=== PATIENT | male | born 1935 | race Caucasian/White ===

== ENCOUNTER 2018-09-21 13:43 | Inpatient (IN) ==
[2018-09-21] MEDS ORDERED: MORPHINE IV PRN (13:59)
[2018-09-21] MEDS ORDERED: ZOFRAN IV PRN (13:59)
[2018-09-21] MEDS ORDERED: SALINE LOCK IV FLUID XX ONE (13:59)
[2018-09-21 17:32] LABS: URINE SOURCE CATH
[2018-09-21 17:38] LABS: BILIRUBIN URINE NEGATIVE (NEGATIVE); BLOOD URINE MODERATE (NEGATIVE); COLOR YELLOW; GLUCOSE URINE NEGATIVE (NEGATIVE); KETONE URINE NEGATIVE (NEGATIVE); LEUKOCYTES URINE TRACE (NEGATIVE); NITRITE URINE NEGATIVE (NEGATIVE); PH URINE 5.5; PROTEIN URINE 30 mg/dL (NEGATIVE); SP GRAVITY URINE 1.023; TURBIDITY URINE CLEAR (CLEAR); UR EPITHELIAL CELLS <10 /HPF (<10); URINE BACTERIA NEGATIVE /HPF; URINE RBC TNTC /HPF (<10); URINE WBC <10 /HPF (<10); UROBILINOGEN URINE NORMAL (NORMAL)
[2018-09-21] MEDS: RESTORIL PO SCH (22:49)
[2018-09-21] MEDS: PRAVACHOL PO SCH (22:49)
[2018-09-21] MEDS: SEROQUEL PO SCH (22:49)
[2018-09-21] MEDS: MIRAPEX PO SCH (22:50)
[2018-09-21] MEDS: MICARDIS PO SCH (22:50)
[2018-09-21] MEDS: COREG PO SCH (22:51)
[2018-09-22] MEDS ORDERED: NS 500 ML IV ONE (08:46)
[2018-09-22] MEDS ORDERED: SOLU-MEDROL IV ONE (08:46)
[2018-09-22] MEDS ORDERED: FLOMAX PO ONE (08:49)
[2018-09-22] MEDS ORDERED: IVIG DOSING ORDER MISC SCH (09:00)
[2018-09-22] MEDS: PRILOSEC PO SCH (09:30)
[2018-09-22] MEDS: COREG PO SCH ×2 (09:30→20:53)
--- NOTE | 2018-09-22 10:01 | PROGRESS NOTE ---
DATE: 09/22/2018 SUBJECTIVE: The patient states that he is feeling a little bit better today. His lower abdominal pain has dissipated significantly with placement of a Tinoco, even though he did not have a huge output of urine as a result of that placement. Total output overnight was 650 mL. There was gross blood in it initially. OBJECTIVE: Vital Signs: 98.2, 73, 16, 133/72, 100% saturated on room air. General: The patient is sitting in bed eating. His tremor is improved, particularly in the right arm and the tremor that is visible is consistent with a parkinsonian tremor. He also has tremor in left arm, but it is not as prominent. ENT: Unremarkable. Lungs: Clear. Cardiovascular: Regular. Genitourinary: Tinoco bag has some dark-colored urine in it but is otherwise without sediment. LABORATORY DATA: Yesterday the patient had laboratory drawn at the [facility] outpatient and the only significant finding was atrial fibrillation, rate of 51. Kidney function, liver functions, electrolytes, white cell count and red cell count were appropriate and normal for him. Initial urinalysis done at the hospital after catheterization showed ttx-[id number]-count red cells in the urine. ASSESSMENT AND PLAN: 1. We will monitor the patient for signs of infection. He is not on any empiric antibiotics. 2. I still consider that the patient was in some form of urinary retention which may or may not be intertwined with his hematuria. I have started him on some Flomax and we will keep the Tinoco catheter in for now. I do not see a reason for urgent urologic consultation at the present time. 3. The patient's sedimentation rate could be indicative of an infectious process or given the fact that he had such diffuse and severe joint pain that he had PMR. I am going to treat him with steroids and also re-dose his IVIG which he had taken in February for his demyelinating polyneuropathy. I have asked the pharmacy to calculate the dose for him. I am hopeful that he will have a marked recovery by tomorrow with the induction of steroids and IVIG and will be able to be sent home for outpatient follow-up at that point. 4. Patient's Parkinson's is stable. He is on his home medication regimen. cc: Vladislav Corral MD
[2018-09-22] MEDS: GAMUNEX-C 10% IV SCH (12:08)
[2018-09-22] MEDS: PATIENT'S OWN MED PO SCH (17:40)
[2018-09-22] MEDS: SEROQUEL PO SCH (20:52)
[2018-09-22] MEDS: FLOMAX PO SCH (20:52)
[2018-09-22] MEDS: MIRAPEX PO SCH (20:53)
[2018-09-22] MEDS: PRAVACHOL PO SCH (20:53)
[2018-09-22] MEDS: RESTORIL PO SCH (20:54)
[2018-09-22] MEDS: MICARDIS PO SCH (20:54)
[2018-09-23 07:27] LABS: BASO# 0.01 X1000 (0.0-0.2); BASO% 0.1 % (0.0-0.8); EOS# 0.02 X1000 (0.0-0.7); EOS% 0.3 % (0.0-10.0); HEMATOCRIT 41.4 % (42.0-52.0); HEMOGLOBIN 13.8 g/dL (14.0-18.0); LYMPH# 0.69 X1000 (1.2-3.4); LYMPH% 8.8 % (20.5-51.1); MCH 31.1 PG (27-31); MCHC 33.3 g/dL (33-37); MCV 93.2 FL (81-99); MONO# 0.42 X1000 (0.11-0.59); MONO% 5.4 % (1.7-9.3); MPV 10.5 FL (7.4-10.4); NEUT# 6.66 X1000 (1.4-6.5); NEUT% 85.4 % (42.2-75.2); PLT 220 X1000 (130-400); RBC 4.44 XMIL (4.7-6.1); RDW 13.4 % (11.5-14.5)
[2018-09-23 07:34] LABS: AGAP 12; BUN 23 mg/dL (8-22); CALCIUM 9.4 mg/dL (8.8-10.2); CHLORIDE 104 mmol/L (98-107); COSMO 283; ESTIMATED GFR > 60; GLUCOSE 132 mg/dL (70-104); POTASSIUM 3.8 mmol/L (3.5-5.1); SODIUM 139 mmol/L (136-145); TCO2 23 mmol/L (25-35)
[2018-09-23] MEDS: PRILOSEC PO SCH (09:07)
[2018-09-23] MEDS: COREG PO SCH ×2 (09:07→20:38)
[2018-09-23] MEDS: PATIENT'S OWN MED PO SCH (09:07)
[2018-09-23] MEDS: GAMUNEX-C 10% IV SCH (10:47)
--- NOTE | 2018-09-23 16:25 | PROGRESS NOTE ---
DATE: 09/23/2018 SUBJECTIVE: The patient had a very rough night and was very agitated. This morning he has completely lost his faculties and is not lucid. He is no coherent. He is not oriented, despite being alert. I spoke at length with his daughter whom I have never met before. OBJECTIVE: Vital Signs: Temperature 98.2, pulse 86, respirations 16, blood pressure 133/79. General: He is a well developed white male in no acute distress. He is rambling on. His thoughts are not very coherent. He does not seem to be oriented to time, place, or person. Lungs: Clear. Cardiovascular: Regular. Extremities: Showed no peripheral edema. Genitourinary: Tinoco catheter is draining some darkish looking urine. ASSESSMENT AND PLAN: 1. The patient's acute mental status change could be precipitated by any number of things. When I spoke further with the daughter, she indicated that the patient had not been getting medication as prescribed. The patient's frequently holds out various and sundry pills according to her own whims and it is rare, if ever, that the patient gets all of the medication that he is prescribed. Having been naive to that medication for some time, the fact that all of this was dumped on him at once with the assumption that this represented his home medication regimen, was a false premise. We are going to hold several of the medications and see if his sensorium clears. 2. The patient's urinary retention has been treated with Tinoco catheter and some Flomax. We will continue to monitor this situation and likely discontinue Tinoco catheter. 3. The patient has had an elevated sedimentation rate and known chronic inflammatory demyelinating polyneuropathy. He was given steroids and does not seem to have as much joint pain today. He gets his second dose of intravenous immunoglobulin as well. These two infusions were given to follow the recommendations of Dr. Gagnon, as evidenced by his communication note from a previous neurological office visit. 4. The patient's Parkinson's is stable. He still has a tremor. 5. The patient's overall weakness has not really improved but we plan on getting him up if his mental status improves significantly. cc: Vladislav Corral MD
[2018-09-23] MEDS: PRAVACHOL PO SCH (20:37)
[2018-09-23] MEDS: FLOMAX PO SCH (20:38)
[2018-09-23] MEDS: TYLENOL PO PRN (20:38)
[2018-09-23] MEDS: MIRAPEX PO SCH (20:38)
[2018-09-23] MEDS: MICARDIS PO SCH (20:38)
[2018-09-24] MEDS ORDERED: PREDNISONE PO SCH (09:00)
[2018-09-24] MEDS: COREG PO SCH ×2 (09:02→22:30)
[2018-09-24] MEDS: PRILOSEC PO SCH (09:02)
[2018-09-24] MEDS: PATIENT'S OWN MED PO SCH (09:03)
[2018-09-24] MEDS: TYLENOL PO PRN (12:24)
[2018-09-24] MEDS: MIRAPEX PO SCH (22:30)
[2018-09-24] MEDS: FLOMAX PO SCH (22:30)
[2018-09-24] MEDS: MICARDIS PO SCH (22:30)
[2018-09-24] MEDS: PRAVACHOL PO SCH (22:30)
[2018-09-25] MEDS: TYLENOL PO PRN (01:46)
[2018-09-25 06:45] LABS: BASO# 0.01 X1000 (0.0-0.2); BASO% 0.1 % (0.0-0.8); EOS# 0.02 X1000 (0.0-0.7); EOS% 0.2 % (0.0-10.0); HEMATOCRIT 37.3 % (42.0-52.0); HEMOGLOBIN 12.5 g/dL (14.0-18.0); IMM GRAN# 0.02 X1000 (0.0-0.04); IMM GRAN% 0.2 % (0.0-0.5); LYMPH# 1.65 X1000 (1.2-3.4); LYMPH% 17.3 % (20.5-51.1); MCH 30.9 PG (27-31); MCHC 33.5 g/dL (33-37); MCV 92.1 FL (81-99); MONO# 0.95 X1000 (0.11-0.59); MPV 10.2 FL (7.4-10.4); NEUT# 6.89 X1000 (1.4-6.5); NEUT% 72.2 % (42.2-75.2); PLT 233 X1000 (130-400); RBC 4.05 XMIL (4.7-6.1); RDW 13.3 % (11.5-14.5); WBC 9.54 X1000 (4.8-10.8)
[2018-09-25 07:08] LABS: AGAP 11; ALB/GLOB RATIO 0.6; ALBUMIN 3.2 g/dL (3.5-5.0); ALKALINE PHOSPHATASE 54 U/L (32-122); BUN 25 mg/dL (8-22); CALCIUM 9.3 mg/dL (8.8-10.2); CHLORIDE 100 mmol/L (98-107); COSMO 278; ESTIMATED GFR > 60; GLUCOSE 123 mg/dL (70-104); GOT 21 U/L (10-34); GPT 9 U/L (10-44); POTASSIUM 3.7 mmol/L (3.5-5.1); SODIUM 136 mmol/L (136-145); TCO2 25 mmol/L (25-35); TOTAL BILIRUBIN 0.65 mg/dL (0.20-1.00); TOTAL PROTEIN 8.6 g/dL (6.3-8.3)
[2018-09-25] MEDS: PREDNISONE PO SCH (09:09)
[2018-09-25] MEDS: PRILOSEC PO SCH (09:09)
[2018-09-25] MEDS: PATIENT'S OWN MED PO SCH (09:10)
[2018-09-25] MEDS: COREG PO SCH ×2 (09:13→22:11)
--- NOTE | 2018-09-25 09:14 | Diag Imaging Result Doc PS360 ---
EXAM: CT HEAD W/O CONTRAST INDICATION: mental status change TECHNIQUE: This exam was performed using automated exposure control, adjustment of mA or kV according to patient size, and/or use of iterative reconstruction technique. COMPARISON: None. FINDINGS: There is moderate diffuse brain atrophy. There is mild patchy low attenuation in the periventricular and subcortical white matter suggesting mild microangiopathy. There is no definite acute infarct given the limited sensitivity of CT versus MRI. There is no discrete intracranial mass, mass effect, or intracranial hemorrhage. The surrounding soft tissues and bony structures are essentially unremarkable. IMPRESSION: Chronic appearing changes as described. No evidence of acute intracranial pathology. Electronically signed by Duglas Dunn 09/25/2018 9:12 AM
--- NOTE | 2018-09-25 09:29 | PROGRESS NOTE ---
DATE: 09/25/2018 SUBJECTIVE: The patient's states that he is "off the wall" this morning. She is shaving him and he is cooperative, but he is not oriented. Even though his speech is relatively fluent, the content does not make a bunch of sense. He tries to respond to questions meaningfully but generally does not have a level of orientation that permits appropriate conversation. OBJECTIVE: VITAL SIGNS: 97.7 degrees, 92, 20, 174/91. LUNGS: Clear. CARDIOVASCULAR: Regular rhythm. NEURO/PSYCH: The patient is not oriented to time, place, person or situation. He is relatively cooperative. LABORATORY DATA: White count 9.5, hematocrit 37.3. BUN 25, creatinine 1.0. Blood sugar is 123. Liver function tests normal. ASSESSMENT AND PLAN: 1. Patient's acute mental status changer fixer the last few days is completely inexplicable. His lab work is normal. I'm ordering a CT scan of the brain although I doubt acute intracranial pathology could account for his level of delirium. Plan to give him some Risperdal tonight. 2. Urinary retention has been alleviated. He is on Flomax and the Tinoco catheter has been removed. 3. The patient's elevated sed rate has been treated with steroids. I suspect something along the lines of PMR based on his symptomatology at presentation. I have weaned his steroids down to 20 mg daily. He denies pain when he is oriented enough to respond. He has had 2 booster doses of IVIG as per the recommendations from Dr. Gagnon. 4. The patient's Parkinson's disease is stable. He still has a tremor. He is taking his home medications as previously. 5. The patient's blood pressure is running up a little bit. I have increased his carvedilol to 12.5 twice daily and we will monitor this situation. At the present time, the patient is incapable of returning home due to his mental status and overall debilitated state. We will likely get physical therapy involved at the beginning of the week. cc: Vladislav Corral MD MTDD
--- NOTE | 2018-09-25 11:09 | PROGRESS NOTE ---
DATE: 09/24/2018 SUBJECTIVE: The patient is still completely disoriented. He does not make any sense talking to him. There is no family present today. OBJECTIVE: Vital signs: Temperature is 98.1, pulse 78, respirations 20, blood pressure 129/80, saturation 98% on room air. As stated, the patient is alert but not oriented. His ongoing commentary and responses are not appropriate to the conversation. Lungs: Clear to auscultation. Cardiovascular: Regular without appreciable murmur or gallop. Extremities: No edema. ASSESSMENT AND PLAN: 1. We will discontinue the patient's Tinoco catheter. 2. The patient's acute mental status change is rather inexplicable. We will give him more time to wash out any medications he had from the day before and see if he responds to that. He is at present on his home medication regimen as we understand it. 3. The patient's elevated sedimentation rate has been treated with steroids. He seems to have responded. 4. We will get physical therapy evaluation today. 5. Parkinsonian tremor is stable. 6. The patient is incapable to returning home at the present time due to his change in mental status and continued weakness. cc: Vladislav Corral MD
[2018-09-25] MEDS ORDERED: ATIVAN IV ONE (12:22)
[2018-09-25] MEDS: MIRALAX PO SCH (13:33)
[2018-09-25] MEDS: ATIVAN IV PRN ×2 (18:16→22:07)
[2018-09-25] MEDS: RISPERDAL PO SCH (22:08)
[2018-09-25] MEDS: FLOMAX PO SCH (22:09)
[2018-09-25] MEDS: PRAVACHOL PO SCH (22:10)
[2018-09-25] MEDS: MIRAPEX PO SCH (22:10)
[2018-09-25] MEDS: MICARDIS PO SCH (22:10)
[2018-09-26] MEDS: ATIVAN IV PRN (04:09)
[2018-09-26] MEDS: TYLENOL PO PRN ×2 (04:13→21:47)
--- NOTE | 2018-09-26 10:00 | PROGRESS NOTE ---
DATE: 09/26/2018 SUBJECTIVE: The patient was fast asleep. I initially thought this was a good thing. His daughter was present and she stated that he "needed rest." I then found out that he had received 3 doses of Ativan yesterday and the last being at 4 a.m., which is probably why he was still knocked out. His overall psychological status will be difficult to evaluate. The daughter related some other severe psychosocial stressors as well as some other aspects of her mother's domination And control of the patient's medications and other activities of daily living. OBJECTIVE: Vital signs: Temperature 97.7, pulse 81, respirations 20, blood pressure 146/90, 98% percent saturating on room air. PHYSICAL EXAMINATION: The patient is sound asleep. He responds to a gentle sternal rub but does not speak meaningfully. No psychological evaluation is able to be made. ASSESSMENT/PLAN: 1. Acute mental status change is likely fueled by multiple issues. His CT scan did show some atrophy of the brain, but no acute findings. He has multiple psychosocial stressors. He also has some borderline dementia, which I think is associated with his Parkinson's. This combination has resulted in his delirium. Unfortunately, I do not think further Ativan is going to be helpful. I would rather use an antipsychotic agent and will continue with the Risperdal I gave him yesterday. 2. Patient's elevated sedimentation rate is treated with steroids. He seemed to respond well. The patient's daughter relates that he was able to move his feet and legs in bed yesterday which is something he had not been able to do without pain prior to admission. 3. Hopefully physical therapy will be able to resume tomorrow. 4. Parkinsonian tremor appears stable. He does not have any tremor while asleep under the veil of Ativan. 5. I spoke with the patient's daughter and she agreed that he should likely go to rehab for a while to regain his feet. I am not sure that his mental status would support that at this time, but hopefully his sensorium will return to its baseline. We can get him to rehab at that time. cc: Vladislav Corral MD
[2018-09-26] MEDS: PRILOSEC PO SCH (12:43)
[2018-09-26] MEDS: PREDNISONE PO SCH (12:44)
[2018-09-26] MEDS: MIRALAX PO SCH (12:44)
[2018-09-26] MEDS: COREG PO SCH ×2 (12:44→21:47)
[2018-09-26] MEDS: PATIENT'S OWN MED PO SCH (12:44)
[2018-09-26] MEDS: LOVENOX SUBQ SCH (12:53)
[2018-09-26] MEDS: MIRAPEX PO SCH (20:34)
[2018-09-26] MEDS: RISPERDAL PO SCH (20:34)
[2018-09-26] MEDS: MICARDIS PO SCH (20:34)
[2018-09-26] MEDS: FLOMAX PO SCH (20:34)
[2018-09-26] MEDS: PRAVACHOL PO SCH (20:35)
[2018-09-27] MEDS: COREG PO SCH ×2 (06:08→21:23)
[2018-09-27] MEDS: MIRALAX PO SCH (08:52)
[2018-09-27] MEDS: PRILOSEC PO SCH (08:53)
[2018-09-27] MEDS: PREDNISONE PO SCH (08:53)
[2018-09-27] MEDS: PATIENT'S OWN MED PO SCH (08:53)
--- NOTE | 2018-09-27 09:02 | PROGRESS NOTE ---
DATE: 09/27/2018 SUBJECTIVE: . The patient's arouses to stimulation but does not seem oriented. The patient's family stated that he rested all night. He did not have any further sedation. OBJECTIVE: Vital Signs: 98.1, 78, 20, 182/107, 99% saturated on room air. PHYSICAL EXAMINATION: Neck shows no carotid bruits. Lungs are clear cardiovascular is regular. The patient can be aroused and seems to attempt response, but what he says does not make a whole bunch of sense, that is kind of slurred in a way as it has been for several days now. LABORATORY: None ASSESSMENT/PLAN: 1. Repeat all labs including urinalysis and chest x-ray. CBC and CMP today. We will see if this is fruitful in any way. 2. The patient's mental status change is likely multifactorial. The family is convinced that he has had a "nervous breakdown." Apparently, there were multiple psychosocial stressors acting on him. 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 He has been slipping over the last year or more as far as his level of mentation. I think when he was relocated to the hospital, he lost all of his points of orientation and developed a delirium on top of that baseline mild dementia. Hopefully he will recover. 3. I am going to add some Sinemet to his regimen and see if this seems to stimulate him in regard to his Parkinson's. 4. Hopefully physical therapy can resume today if he is alert enough to partake of that. 5. I spoke with the patient's daughter, son or and/or son-in-law and the patient's today in regard to the ongoing plan. We still have a rehabilitation consult and they would prefer [facility] from my understanding. cc: Vladislav Corral MD
[2018-09-27] MEDS: LOVENOX SUBQ SCH (09:15)
[2018-09-27] MEDS: SINEMET 25/100 PO SCH ×4 (09:20→17:29)
[2018-09-27 09:40] LABS: BASO# 0.02 X1000 (0.0-0.2); BASO% 0.2 % (0.0-0.8); EOS# 0.06 X1000 (0.0-0.7); EOS% 0.6 % (0.0-10.0); HEMATOCRIT 41.3 % (42.0-52.0); HEMOGLOBIN 13.8 g/dL (14.0-18.0); LYMPH# 2.52 X1000 (1.2-3.4); LYMPH% 27.1 % (20.5-51.1); MCH 30.3 PG (27-31); MCHC 33.4 g/dL (33-37); MCV 90.6 FL (81-99); MONO# 0.93 X1000 (0.11-0.59); MPV 10.1 FL (7.4-10.4); NEUT# 5.78 X1000 (1.4-6.5); NEUT% 62.1 % (42.2-75.2); PLT 289 X1000 (130-400); RBC 4.56 XMIL (4.7-6.1); RDW 13.3 % (11.5-14.5); WBC 9.31 X1000 (4.8-10.8)
[2018-09-27 10:12] LABS: AGAP 13; ALB/GLOB RATIO 0.6; ALBUMIN 3.2 g/dL (3.5-5.0); ALKALINE PHOSPHATASE 54 U/L (32-122); BUN 33 mg/dL (8-22); CALCIUM 9.2 mg/dL (8.8-10.2); CHLORIDE 100 mmol/L (98-107); COSMO 286; CREATININE 1.1 mg/dL (0.7-1.2); ESTIMATED GFR > 60; GLUCOSE 150 mg/dL (70-104); GOT 21 U/L (10-34); GPT 11 U/L (10-44); POTASSIUM 3.5 mmol/L (3.5-5.1); SODIUM 138 mmol/L (136-145); TCO2 25 mmol/L (25-35); TOTAL BILIRUBIN 0.94 mg/dL (0.20-1.00); TOTAL PROTEIN 8.6 g/dL (6.3-8.3)
--- NOTE | 2018-09-27 11:12 | Diag Imaging Result Doc PS360 ---
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 The lungs are clear. Heart size is normal. No pneumothorax or pleural effusion. IMPRESSION: Negative exam. Electronically signed by Damian Márquez 09/27/2018 11:10 AM
[2018-09-27 12:15] LABS: URINE SOURCE CATH
[2018-09-27 12:18] LABS: BILIRUBIN URINE NEGATIVE (NEGATIVE); BLOOD URINE MODERATE (NEGATIVE); COLOR YELLOW; GLUCOSE URINE NEGATIVE (NEGATIVE); KETONE URINE NEGATIVE (NEGATIVE); LEUKOCYTES URINE TRACE (NEGATIVE); NITRITE URINE NEGATIVE (NEGATIVE); PH URINE 5.5; PROTEIN URINE TRACE mg/dL (NEGATIVE); SP GRAVITY URINE 1.022; TURBIDITY URINE CLEAR (CLEAR); UROBILINOGEN URINE 2 mg/dL (NORMAL)
[2018-09-27 12:19] LABS: UR EPITHELIAL CELLS <10 /HPF (<10); URINE BACTERIA NEGATIVE /HPF; URINE RBC TNTC /HPF (<10); URINE WBC <10 /HPF (<10)
[2018-09-27] MEDS: MICARDIS PO SCH (21:23)
[2018-09-27] MEDS: MIRAPEX PO SCH (21:23)
[2018-09-27] MEDS: FLOMAX PO SCH (21:23)
[2018-09-27] MEDS: PRAVACHOL PO SCH (21:23)
[2018-09-27] MEDS: RISPERDAL PO SCH (21:24)
--- NOTE | 2018-09-28 09:09 | PROGRESS NOTE ---
DATE: 09/28/2018 SUBJECTIVE: The patient is sitting up in bed, being assisted with feeding by his daughter. Although his eyes are closed, he opens them quickly and seemed to recognize me. He denies any pain. OBJECTIVE: Vital Signs: Temperature is 98 degrees, pulse was registered at 114, respirations are 18, blood pressure 168/85, 98% saturated on room air. Physical Examination: Neuropsychiatric: The patient is as oriented as he has been in a number of days. He recognized me and seemed to try and respond meaningfully to some questions. Later in our interview, he said some things that did not seem to be making a whole bunch of sense though. Lungs: Clear. Cardiovascular: Regular, approximately 90 beats per minute at the time of my examination. Laboratory: White count is 9.3, hemoglobin 13.8. BUN 33, creatinine 1.1, blood sugar is 150. Urinalysis showed [id number]-count red blood cells. ASSESSMENT AND PLAN: 1. I am going to get them to run a sedimentation rate on his labs from yesterday and see if this is diminished. The remainder of his labs remain within a reasonable range. 2. The patient's mental status has improved slightly today. Hopefully, we can make some progress with physical therapy and get him to rehab soon. 3. I added Sinemet yesterday. It was unclear whether this seemed to help him. We will continue it and see how he does with physical therapy and further observation. 4. Physical therapy. We will continue today. 5. Urology was consulted yesterday. I am not sure what their short and long-term plan is for his hematuria but we can make adjustments based on their opinions. cc: Vladislav Corral MD
--- NOTE | 2018-09-28 09:53 | Diag Imaging Result Doc PS360 ---
CT UROGRAM (ABD/PELV W/WO CON) - 09/28/2018 INDICATION: hematuria TECHNIQUE: COMPARISON: 05/07/2012 FINDINGS: On the noncontrast exam, there is is a tiny 1 mm nonobstructing stone in the right kidney. On the contrast-enhanced exam, there is a stable large right renal cyst. This measures 6.5 x 6.5 cm. There is some interstitial scarring in the costophrenic angles. Otherwise the lung bases are clear. Heart size is borderline. No pericardial effusion. The liver, gallbladder, spleen, pancreas, and adrenals are normal. Both kidneys enhance normally. There is significant diffuse constipation. No bowel obstruction or inflammation. There is a tiny amount of air in the urinary bladder. The prostate gland is absent. There are numerous surgical clips all throughout the pelvis. The rectum is normal. There is some vascular disease of the femoral arteries bilaterally. There is heavy vascular disease of the abdominal aorta and its pelvic branches as well. No aneurysm or significant vascular stenosis. There are moderate degenerative changes of the spine. No acute or suspicious bony lesion. IMPRESSION: 1. Tiny 1 mm nonobstructing stone in the right kidney. 2. Stable large benign right renal cyst. 3. Severe constipation. 4. Small drop of air in the urinary bladder. Please correlate if there has been recent catheterization. Electronically signed by Damian Márquez 09/28/2018 9:51 AM
[2018-09-28] MEDS: LOVENOX SUBQ SCH (10:26)
[2018-09-28] MEDS: COREG PO SCH (10:28)
[2018-09-28] MEDS: PRILOSEC PO SCH (10:28)
[2018-09-28] MEDS: SINEMET 25/100 PO SCH ×3 (10:28→17:39)
[2018-09-28] MEDS: PREDNISONE PO SCH (10:29)
[2018-09-28] MEDS: MIRALAX PO SCH (10:29)
[2018-09-28] MEDS: PATIENT'S OWN MED PO SCH (10:32)
--- NOTE | 2018-09-28 13:46 | CONSULTATION ---
DATE OF CONSULTATION: 09/28/2018 CONSULTING PHYSICIAN: Dr. Vladislav Corral. REASON FOR CONSULTATION: Hematuria, voiding issues. HISTORY OF PRESENT ILLNESS: An 83-year-old male with history of prostate cancer as well as urolithiasis. He has multiple medical comorbidities including Parkinson disease, and was admitted on 09/21/2018 secondary to altered mental status and frequency, urgency and pelvic pain. While in the hospital, his urine culture showed no growth. His urinalysis had a significant amount of red blood cells to constitute microscopic hematuria. Most of the history is obtained through his , as the patient is a poor historian. She reports seeing dark urine that had a reddish tinge as well as clots in his Depends. She reports that he is currently voiding without complaints. Per record review, he has voided 4 times into his diaper. He denies flank pain. PAST MEDICAL HISTORY: Prostate cancer status post open radical prostatectomy in the by Dr. Harrington at [facility]. Urolithiasis status post extracorporeal shockwave lithotripsy over 15 years ago. Hypertension, coronary artery disease, obstructive sleep apnea, Parkinson disease, and erectile dysfunction. PAST SURGICAL HISTORY: TURP x2, open radical retropubic prostatectomy in 1987, left heart catheterization. FAMILY HISTORY: Positive for prostate cancer in father and brothers. SOCIAL HISTORY: Denies currently tobacco, alcohol or illicit drug use. He is a former smoker. ALLERGIES: Penicillin. HOME MEDICATIONS: 1. Pravastatin. 2. Telmisartan. 3. Azilect. 4. Aspirin. 5. Potassium chloride. 6. Indapamide. 7. Prilosec. 8. Carvedilol. 9. Mirapex. 10. Seroquel. 11. Temazepam. 12. Gabapentin. 13. Sennosides. REVIEW OF SYSTEMS: Unobtainable due to patient's poor answering but per , it is negative with exception to the HPI. PHYSICAL EXAMINATION: Temperature 98 degrees, pulse 114, blood pressure 168/85.General: No acute distress. Pleasant male. HEENT: Normocephalic, atraumatic. Cardiovascular: Regular rhythm. Pulmonary: Bilateral breath sounds. Abdomen: Scaphoid. Well-healed infraumbilical incision. Nontender to palpation. Normal bowel sounds. Genitourinary: The bladder is nontender to palpation. Meatus is patent, penile shaft is without masses or lesions, testes are atrophic but descended bilaterally. Perineum: Structural integrity is intact. Digital rectal examination: Deferred at the time of the visit. Back: No CVA tenderness. Lymphatic: No groin lymphadenopathy. No cervical lymphadenopathy. Dermatologic: No obvious skin rashes. Psychiatric: Appropriate mood and affect. PERTINENT LABORATORY DATA: White cell count is 9000, hematocrit is 41, creatinine is 1.1. Urinalysis on 09/27/2018 and 09/21/2018 showing too numerous to count red blood cells. PERTINENT MICROBIOLOGY: Urine culture no growth on 09/21/2017. PERTINENT IMAGES: None. ASSESSMENT: An 83-year-old male with history of prostate cancer and urolithiasis who is admitted for unrelated visit and has documented microscopic hematuria without evidence of infection. Per his , he possibly has had gross hematuria. I discussed with the patient and his differential diagnoses of hematuria including malignancies such as bladder cancer. We discussed that the standard of care is evaluation with a CT urogram and cystoscopy. I offered to order a CT urogram while he is in the hospital and then schedule the patient for cystoscopy in clinic on an outpatient basis. His and patient voiced understanding. PLAN: 1. CT urogram today to evaluate upper tract. 2. We will follow up on that and proceed with further recommendations if needed. 3. Otherwise, once cleared for discharge by his family care provider and completes his rehabilitation, I will be happy to see him in clinic to perform office cystoscopy. Thank you for consultation. cc: MD Vladislav Cortez MD
[2018-09-29] MEDS: PRAVACHOL PO SCH (00:08)
[2018-09-29] MEDS: RISPERDAL PO SCH (00:08)
[2018-09-29] MEDS: FLOMAX PO SCH (00:08)
[2018-09-29] MEDS: COREG PO SCH ×2 (00:08→09:43)
[2018-09-29] MEDS: MIRAPEX PO SCH (00:08)
[2018-09-29] MEDS: MICARDIS PO SCH (00:09)
[2018-09-29] MEDS ORDERED: PREDNISONE PO SCH (09:00)
--- NOTE | 2018-09-29 09:12 | PROGRESS NOTE ---
DATE: 09/29/2018 SUBJECTIVE: The patient is eating breakfast. He is sitting in bed with his eyes closed. He refuses to open them, but responds to questions in his usual inappropriately joking manner. His is at the bedside. She has been made aware that a bed is available at [facility]. OBJECTIVE: Vital Signs: 97.7, 82, 18, 157/82, 97% saturated on room air. Lungs: Clear. Cardiovascular: Regular. Neurologic: From a neuro psych standpoint, the patient is at least able to respond. I am not sure if his responses are appropriate or not. I am not sure of his level of orientation. Apparently, he was alert and oriented enough yesterday to be able to walk with physical therapy and actually performed quite well relative to his state of debilitation. Musculoskeletal: I aggressively palpated the patient's joints and muscles and got no response of pain from that. LABORATORY: None was drawn. ASSESSMENT AND PLAN: 1. Repeat sedimentation rate was still markedly elevated. I have increased his prednisone to 40 mg, and he will need to go out on that and follow up with me for sedimentation rate. 2. The patient's mental status is slightly improved. He was able to cooperate with physical therapy, which is a sign of progress. 3. The patient will continue on Sinemet to see if that improves his mobility. 4. We will continue physical therapy. 5. CT urogram did not show any evidence of obstruction or aggressive pathology. The patient will need outpatient cystoscopy. 6. assisted papers were filled out. Medications will be reconciled and all I will need to do is click a button to send him to [facility]. cc: Vladislav Corral MD
[2018-09-29] MEDS: SINEMET 25/100 PO SCH ×2 (09:42→13:06)
[2018-09-29] MEDS: PRILOSEC PO SCH (09:43)
[2018-09-29] MEDS: MIRALAX PO SCH (09:43)
[2018-09-29] MEDS: LOVENOX SUBQ SCH (09:43)
[2018-09-29] MEDS: PATIENT'S OWN MED PO SCH (09:48)
--- NOTE | 2018-09-29 10:17 | DISCHARGE SUMMARY ---
ADMISSION DATE: 09/21/2018 DISCHARGE DATE: DISCHARGE DIAGNOSES: 1. Profound weakness. 2. Joint pain. 3. Elevated sedimentation rate. 4. Hematuria. 5. Parkinson's disease. 6. Hypertension. 7. Chronic idiopathic demyelinating polyneuritis. CONSULTATIONS: Paresh Salazar MD OPERATIVE PROCEDURES: None. HOSPITAL COURSE: This 83-year-old white male with known Parkinson's disease presented to the office with profound weakness. He was basically unable to stand or move. He cried out in pain with pain in multiple joints and muscles. The family found this rather inexplicable because in February he had received a 5 day course of IVIG for his demyelinating neuropathy. At that point, he was very very mobile. He was able to walk and get up under his own power. Over the last several days to weeks, he has declined in his ability to move. He now has joint pain, and is profoundly weak. Patient was admitted to the hospital. Initial labs were basically normal with the exception of a catheterized specimen showing hematuria. We left the Tinoco catheter in, and attempted to hydrate the patient aggressively, which had no ill consequences. We removed the Tinoco catheter, and a day later did an in and out which again showed hematuria. Dr. Salazar was consulted. He did a CT urogram which showed no evidence of obstruction or stones or obvious pathology. He planned to do an outpatient cystoscopy when the patient was done with rehab or had recovered sufficiently. The patient was found to have an elevated sedimentation rate, and was started on steroids. He had initially gotten IV steroid, and it was changed to prednisone. It was difficult to tell for other reasons which will be described below, but it seemed as if his joint and inflammation and pain markedly dissipated at this point. I suspected that he had some form of polymyalgia rheumatica and continued the steroids. Interestingly, some type of other rheumatologic test was run which I never ordered, which showed a very high rheumatoid factor. This will need to be worked up on outpatient basis and doses adjusted appropriately. Approximately 2 days into his hospitalization, the patient's confusion greatly worsened. 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 During the hospitalization, he became totally irrational, had some behaviors at night which necessitated some sedation. We eventually started him on some Sinemet as an adjunct for his Parkinson's, and gave him a little bit of risperidone at night. Although his sensorium had improved at time of discharge, he was not back to where I would consider his baseline. I think the patient has compensated over the years for his forgetfulness and baseline dementia by trying to make jokes out of conversational elements. I realize now that he probably just did not understand or was incapable of responding appropriately. At the time of discharge, he was able to respond to questions although sometimes the answers were not as revealing as they should have been. Arrangements were made for transfer to [facility] as that is close to their home. Hopefully, the patient will be able to regain his feet and good stead. On the 2 days prior to discharge, physical therapy was able to get up and walk with him so that was a definite definitive sign of progress. It is also interesting to note that the patient's CIDP had been treated in February with IVIG. In scouring the notes from his neurologist, it was indicated that should he have further problems, a 2 day course of IVIG would be indicated as treatment. We did that during his hospitalization, and that may have been a contributor to his improvement as well. He will need outpatient IVIG probably on a fairly regular basis. cc: Vladislav Corral MD
--- NOTE | 2018-09-29 11:37 | PROGRESS NOTE ---
DATE: 09/29/2018 SUBJECTIVE: Mr. Goldman states he is feeling fine. He denies pain. He denies hematuria. OBJECTIVE: Vital Signs: T 97.7 degrees, P 82, BP 157/82. His urine output was not recorded as he voids into diapers. General: No acute distress. Abdomen: Nontender, nondistended. Pertinent Laboratories: None today. ASSESSMENT: An 83-year-old male with hematuria and a history of prostate cancer as well as kidney stones. I had ordered CT urogram on 09/28/2018 which revealed 6.5 cm right renal cyst as well as 1 mm right renal stone. I had discussed the findings with the patient, although I am not sure how much he comprehended. I have discussed the findings with his nurse who will portray that to his . PLAN: 1. Once the patient is out of rehab, I will be happy to see him in clinic for office cystoscopy. 2. Please call with questions. cc: MD Vladislav Cortez MD
[2018-09-29 15:46] VITALS: BP 133/75
[2018-10-13] MEDS ORDERED: GAMUNEX-C 10% IV SCH (10:00)
== END 2018-09-29 17:18 | DRG 696 ==
LOC: DIRADM 13:43 → 4N 14:14
PROVIDERS: ADMIT Internal Medicine; ATTEND Internal Medicine
CPT/HCPCS: 70450; 71020; 71046; 74178; 80048; 80053; 81001; 85025; 85651; 87088; 97110; 97162; 97530; A9270; J1561; J1650; J2060; J2270; J2405; J2930; J7040; J7506; J7512; Q9967

== ENCOUNTER 2018-10-04 17:56 | Inpatient (IN) ==
--- NOTE | 2018-10-04 18:29 | Diag Imaging Result Doc PS360 ---
EXAM: CT HEAD W/O CONTRAST 10/04/2018 HISTORY: stroke like symptoms TECHNIQUE: This exam was performed using automated exposure control, adjustment of mA or kV according to patient size, and/or use of iterative reconstruction technique. COMMENT: There is no evidence of mass effect, bleed, or abnormal extra-axial fluid collection. There is some patchy lucency in the subcortical white matter in the frontal lobes. Compared to 09/25/2018 there has been no significant change in the appearance the brain. The visualized paranasal sinuses are clear. The calvarium is intact. IMPRESSION: No evidence of acute disease. Electronically signed by Roshan Townsend 10/04/2018 6:26 PM
--- NOTE | 2018-10-04 18:33 | Diag Imaging Result Doc PS360 ---
EXAM: CHEST-2 VIEWS 10/04/2018 HISTORY: ams TECHNIQUE: AP and lateral chest COMMENT: The appearance of the chest has not changed significantly since 09/27/2018. There are sternotomy wires. IMPRESSION: Stable chest. Electronically signed by Roshan Townsend 10/04/2018 6:31 PM
[2018-10-04 18:45] LABS: BASO# 0.02 X1000 (0.0-0.2); BASO% 0.2 % (0.0-0.8); HEMATOCRIT 39.4 % (42.0-52.0); HEMOGLOBIN 13.1 g/dL (14.0-18.0); IMM GRAN# 0.07 X1000 (0.0-0.04); IMM GRAN% 0.6 % (0.0-0.5); LYMPH# 1.39 X1000 (1.2-3.4); LYMPH% 12.3 % (20.5-51.1); MCH 30.7 PG (27-31); MCHC 33.2 g/dL (33-37); MCV 92.3 FL (81-99); MONO# 0.55 X1000 (0.11-0.59); MONO% 4.9 % (1.7-9.3); MPV 10.3 FL (7.4-10.4); NEUT# 9.23 X1000 (1.4-6.5); PLT 323 X1000 (130-400); RBC 4.27 XMIL (4.7-6.1); RDW 13.9 % (11.5-14.5); WBC 11.26 X1000 (4.8-10.8)
[2018-10-04 19:14] LABS: ALB/GLOB RATIO 0.9; ALBUMIN 3.5 g/dL (3.5-5.0); CALCIUM 9.3 mg/dL (8.8-10.2); CREATININE 1.9 mg/dL (0.7-1.2); POTASSIUM 5.1 mmol/L (3.5-5.1); TOTAL BILIRUBIN 0.47 mg/dL (0.20-1.00); TOTAL PROTEIN 7.6 g/dL (6.3-8.3)
[2018-10-04 20:26] LABS: URINE SOURCE CATH
[2018-10-04 20:30] LABS: BILIRUBIN URINE NEGATIVE (NEGATIVE); BLOOD URINE NEGATIVE (NEGATIVE); COLOR YELLOW; GLUCOSE URINE NEGATIVE (NEGATIVE); KETONE URINE NEGATIVE (NEGATIVE); LEUKOCYTES URINE NEGATIVE (NEGATIVE); NITRITE URINE NEGATIVE (NEGATIVE); PH URINE 5.5; PROTEIN URINE TRACE mg/dL (NEGATIVE); SP GRAVITY URINE 1.016; TURBIDITY URINE CLEAR (CLEAR); UR EPITHELIAL CELLS <10 /HPF (<10); URINE BACTERIA NEGATIVE /HPF; URINE RBC <10 /HPF (<10); URINE WBC <10 /HPF (<10); UROBILINOGEN URINE NORMAL (NORMAL)
[2018-10-04 20:38] LABS: UR AMPHETAMINES QUAL NONE DETECTED (NONE DETECT); UR BARBITUATES QUAL NONE DETECTED (NONE DETECT); UR BENZODIAZEPIN QUAL NONE DETECTED (NONE DETECT); UR CANNABINOIDS QUAL NONE DETECTED (NONE DETECT); UR COCAINE QUAL NONE DETECTED (NONE DETECT); UR METHADONE QUAL NONE DETECTED (NONE DETECT); UR OPIATES QUAL NONE DETECTED (NONE DETECT); UR OXYCODONE QUAL NONE DETECTED (NONE DETECT); UR PCP QUAL NONE DETECTED (NONE DETECT)
[2018-10-04] MEDS ORDERED: ZOFRAN IV PRN (21:54)
[2018-10-05] MEDS: HEPARIN SUBQ SCH ×4 (00:38→21:49)
[2018-10-05] MEDS: NS 1,000 ML IV SCH ×2 (00:39→05:56)
--- NOTE | 2018-10-05 01:18 | PROVIDER DOCUMENTATION ---
This chart was entered by Royer Pierson Scribe, acting as scribe for Ciro Foy MD. HPI-Neurological Disorder - General Chief Complaint: Stroke-Like Symptoms Stated Complaint: poss stroke Time Seen by Provider: 10/04/18 18:05 Source: family Allergies/Adverse Reactions: Patient Allergies Allergy/AdvReac Type Severity Reaction Status Date / Time Penicillins Allergy HIVES Verified 10/04/18 18:14 Home Medications: Home Medication List Medication Instructions Recorded Confirmed Last Taken Type Aspirin [Ecotrin] 81 mg PO HS 05/04/16 09/21/18 05/03/16 History Carvedilol 6.25 mg PO BID 05/04/16 09/21/18 05/04/16 History Indapamide 1.25 mg PO DAILY 05/04/16 09/21/18 05/04/16 History Omeprazole [Prilosec] 20 mg PO DAILY 05/04/16 09/21/18 05/04/16 History Potassium Chloride 10 meq PO DAILY 05/04/16 09/21/18 05/04/16 History Pravastatin Sodium 20 mg PO HS 05/04/16 09/21/18 05/03/16 History Rasagiline Mesylate [Azilect] 1 mg PO DAILY 05/04/16 09/21/18 05/04/16 History Telmisartan 80 mg PO HS 05/04/16 09/21/18 05/03/16 History Gabapentin 300 mg PO BID 09/21/18 09/21/18 Unknown History Pramipexole [Mirapex] 0.25 mg PO QHS 09/21/18 09/21/18 Unknown History Sennosides [Senexon] 17.2 mg PO HS 09/21/18 09/21/18 Unknown History Carbidopa/Levodopa [Sinemet 25/100] 1 each PO TID tablet 09/29/18 Unknown Rx Polyethylene Glycol 3350 [Miralax] 17 gm PO DAILY powder, packet 09/29/18 Unknown Rx Prednisone 40 mg PO DAILY tablet 09/29/18 Unknown Rx Risperidone [Risperdal] 0.25 mg PO QHS tablet 09/29/18 Unknown Rx Tamsulosin [Flomax] 0.4 mg PO QHS capsule 09/29/18 Unknown Rx - History of Present Illness-Neuro Nature of Presenting Problem: Pt is a 83 y/o M comes to the ED from a nursing facility with a possible stroke per the . reports pt was discharged from the hospital 8 days ago with a UTI, AMS and pain. She report when she saw him today he had right sided weakness and slurred speech and diaphoretic. Severity: reports: mild Onset/Duration: reports: unsure Timing: reports: improving Context: reports: none Character of Altered Mental Status: reports: N/A Any recent trauma/injury?: reports: none Character of Deficits: reports: new weakness (right sided weakness) New weakness or altered sensation location:: reports: RUE Cognitive Baseline: alert, oriented x3 Associated Symptoms: reports: slurred speech, weakness Similar Symptoms Previously?: No Recently seen or treated by another doctor?: No Review of Systems - Adult - REVIEW OF SYSTEMS - ADULT Constitutional: denies: chills, fever Eyes: reports: no symptoms reported Ears, Nose, Mouth & Throat: reports: no symptoms reported Cardiovascular: denies: chest pain, edema, palpitations Respiratory: denies: cough, shortness of breath Gastrointestinal: denies: nausea, vomiting Genitourinary: reports: no symptoms reported Musculoskeletal: reports: no symptoms reported Integumentary: reports: no symptoms reported Neurological: reports: slurred speech, other (right sided weakness). denies: dizziness/vertigo, headache/migraines Psychiatric: reports: no symptoms reported Endocrine: reports: no symptoms reported Hematologic/Lymphatic: reports: no symptoms reported Allergic/Immunologic: reports: no symptoms reported All Other Systems: Reviewed and Negative Past History - Adult - PAST MEDICAL HISTORY-ADULT Review of Records: reports: Old Records Reviewed, Nursing Assessment Review, Medications Reviewed Cardiovascular: reports: cardiac disease, HTN, hyperlipidemia Gastrointestinal: reports: GERD Genitourinary: reports: kidney disease, kidney stones, prostate cancer Neurological: reports: Parkinson's - PRIOR SURGERIES/PROCEDURES Surgical/Procedure History: reports: CABG, other (cataract removal/cystoscopy) - IMMUNIZATION STATUS Childhood Immunizations: See Nurse Assessment Flu Vaccine: See Nurse Assessment - SOCIAL HISTORY Smoking: non-smoker Substance Use: none/never Living Situation: care facility Physical Exam- Neurological - Physical Exam-Neuro Initial Vital Signs Reviewed: Yes General Appearance: appears well, alert, no apparent distress Eye Exam: bilateral eye: normal inspection, PERRL, EOMI HENMT: moist mucous membranes, normal ENT inspection, other (tongue deviates to the right) Head Injury: no evidence of injury. negative: active bleeding Neck: non-tender, full range of motion, supple, normal inspection Respiratory: lungs clear, normal breath sounds, no pleuratic chest pain, no respiratory distress, no accessory muscle use Cardiovascular: normal peripheral pulses, regular rate, rhythm Abdominal Exam: normal bowel sounds, non tender, soft Extremity: normal range of motion, non-tender, normal inspection, no pedal edema phys assistant Exam: normal hearing, normal speech, PERRL Coordination/Gait: normal finger to nose, normal gait Motor/Sensory: no motor deficit, no sensory deficit, no pronator drift Neurologic: grossly normal, no motor/sensory deficits Integumentary: normal color, normal turgor, warm/dry Psych/Mental Status: normal mood/affect, normal thought content, normal thought process, oriented x 3 Progress - PLAN OF CARE/RESULTS Progress/Plan/Lab Results: Vital Signs - 8 hr 10/04/18 18:03 10/04/18 18:04 10/04/18 18:10 Temperature Pulse Rate 83 82 Respiratory Rate 20 22 Blood Pressure 129/82 O2 Sat by Pulse Oximetry 98 98 100 10/04/18 18:11 10/04/18 18:32 10/04/18 18:33 Temperature 99.1 F Pulse Rate 82 168 H 106 H Respiratory Rate 19 22 26 H Blood Pressure 129/82 139/67 O2 Sat by Pulse Oximetry 99 96 98 10/04/18 18:40 10/04/18 18:50 10/04/18 19:00 Temperature Pulse Rate 81 133 H 130 H Respiratory Rate 24 17 27 H Blood Pressure O2 Sat by Pulse Oximetry 99 96 97 10/04/18 19:02 10/04/18 19:10 10/04/18 19:20 Temperature Pulse Rate 224 H 81 Respiratory Rate 18 21 21 Blood Pressure 117/78 O2 Sat by Pulse Oximetry 97 98 98 10/04/18 19:30 10/04/18 19:32 10/04/18 19:40 Temperature Pulse Rate 82 85 86 Respiratory Rate 21 22 30 H Blood Pressure 111/81 O2 Sat by Pulse Oximetry 97 97 98 10/04/18 19:50 10/04/18 20:00 10/04/18 20:02 Temperature Pulse Rate 100 H 81 97 H Respiratory Rate 27 H 20 19 Blood Pressure 105/99 O2 Sat by Pulse Oximetry 96 96 96 10/04/18 20:10 10/04/18 20:20 10/04/18 20:30 Temperature Pulse Rate 82 80 81 Respiratory Rate 19 27 H 22 Blood Pressure O2 Sat by Pulse Oximetry 97 97 97 10/04/18 20:32 10/04/18 20:40 10/04/18 20:50 Temperature Pulse Rate 85 85 83 Respiratory Rate 22 20 21 Blood Pressure 140/97 O2 Sat by Pulse Oximetry 96 96 95 10/04/18 21:00 10/04/18 21:01 10/04/18 21:10 Temperature Pulse Rate 82 80 Respiratory Rate 26 H 22 18 Blood Pressure 128/91 O2 Sat by Pulse Oximetry 96 96 97 10/04/18 21:20 10/04/18 21:30 10/04/18 21:31 Temperature Pulse Rate 109 H 81 83 Respiratory Rate 19 27 H 22 Blood Pressure 132/93 O2 Sat by Pulse Oximetry 95 97 97 10/04/18 21:40 10/04/18 21:50 10/04/18 22:00 Temperature Pulse Rate 102 H 85 Respiratory Rate 17 25 H 17 Blood Pressure O2 Sat by Pulse Oximetry 96 97 97 10/04/18 22:01 Temperature Pulse Rate 84 Respiratory Rate 17 Blood Pressure 137/116 O2 Sat by Pulse Oximetry 96 Laboratory Results - last 24 hr 10/04/18 10/04/18 10/04/18 18:10 18:10 18:10 WBC 11.26 H RBC 4.27 L Hgb 13.1 L Hct 39.4 L MCV 92.3 MCH 30.7 MCHC 33.2 RDW Std Deviation 13.9 Plt Count 323 MPV 10.3 Immature Gran % (Auto) 0.6 H Neut % (Auto) 82.0 H Lymph % (Auto) 12.3 L [place] % (Auto) 4.9 Eos % (Auto) 0.0 Baso % (Auto) 0.2 Immature Gran # (Auto) 0.07 H Neut # (Auto) 9.23 H Lymph # (Auto) 1.39 [place] # (Auto) 0.55 Eos # (Auto) 0.00 Baso # (Auto) 0.02 Sodium 135 L Potassium 5.1 Chloride 97 L Carbon Dioxide 23 L Anion Gap 15 BUN 44 H Creatinine 1.9 H Estimated GFR/1.73 m2 34 BUN/Creatinine Ratio 23 Glucose 114 H POC Glucose Calculated Osmolality 282 Calcium 9.3 Total Bilirubin 0.47 AST 19 ALT 6 L Alkaline Phosphatase 50 Troponin T Pdb-L-Sxbrzlvzhps Pept 609 H Total Protein 7.6 Albumin 3.5 Globulin 4.1 Albumin/Globulin Ratio 0.9 Urine Source Urine Color Urine Turbidity Urine pH Ur Specific [place] Urine Protein Ur Glucose (Stick) Ur Ketones (Stick) Urine Blood Urine Nitrite Urine Bilirubin Urobilinogen Dipstick Urine Leukocytes Urine WBC (Auto) Urine RBC (Auto) U Epithel Cells (Auto) Urine Bacteria (Auto) Urine Opiates Screen Ur Oxycodone Screen Ur Methadone, Qual Ur Barbiturates Screen Ur Phencyclidine Scrn Ur Amphetamines Screen U Benzodiazepines Scrn Urine Cocaine Screen U Cannabinoids Screen 10/04/18 10/04/18 10/04/18 18:10 18:36 20:14 WBC RBC Hgb Hct MCV MCH MCHC RDW Std Deviation Plt Count MPV Immature Gran % (Auto) Neut % (Auto) Lymph % (Auto) [place] % (Auto) Eos % (Auto) Baso % (Auto) Immature Gran # (Auto) Neut # (Auto) Lymph # (Auto) [place] # (Auto) Eos # (Auto) Baso # (Auto) Sodium Potassium Chloride Carbon Dioxide Anion Gap BUN Creatinine Estimated GFR/1.73 m2 BUN/Creatinine Ratio Glucose POC Glucose 138 H Calculated Osmolality Calcium Total Bilirubin AST ALT Alkaline Phosphatase Troponin T < 0.010 Cjb-A-Htcltdoanmk Pept Total Protein Albumin Globulin Albumin/Globulin Ratio Urine Source CATH Urine Color YELLOW Urine Turbidity CLEAR Urine pH 5.5 Ur Specific [place] 1.016 Urine Protein TRACE A Ur Glucose (Stick) NEGATIVE Ur Ketones (Stick) NEGATIVE Urine Blood NEGATIVE Urine Nitrite NEGATIVE Urine Bilirubin NEGATIVE Urobilinogen Dipstick NORMAL Urine Leukocytes NEGATIVE Urine WBC (Auto) <10 Urine RBC (Auto) <10 U Epithel Cells (Auto) <10 Urine Bacteria (Auto) NEGATIVE Urine Opiates Screen Ur Oxycodone Screen Ur Methadone, Qual Ur Barbiturates Screen Ur Phencyclidine Scrn Ur Amphetamines Screen U Benzodiazepines Scrn Urine Cocaine Screen U Cannabinoids Screen 10/04/18 20:14 WBC RBC Hgb Hct MCV MCH MCHC RDW Std Deviation Plt Count MPV Immature Gran % (Auto) Neut % (Auto) Lymph % (Auto) [place] % (Auto) Eos % (Auto) Baso % (Auto) Immature Gran # (Auto) Neut # (Auto) Lymph # (Auto) [place] # (Auto) Eos # (Auto) Baso # (Auto) Sodium Potassium Chloride Carbon Dioxide Anion Gap BUN Creatinine Estimated GFR/1.73 m2 BUN/Creatinine Ratio Glucose POC Glucose Calculated Osmolality Calcium Total Bilirubin AST ALT Alkaline Phosphatase Troponin T Smm-U-Nkxsacognyq Pept Total Protein Albumin Globulin Albumin/Globulin Ratio Urine Source Urine Color Urine Turbidity Urine pH Ur Specific [place] Urine Protein Ur Glucose (Stick) Ur Ketones (Stick) Urine Blood Urine Nitrite Urine Bilirubin Urobilinogen Dipstick Urine Leukocytes Urine WBC (Auto) Urine RBC (Auto) U Epithel Cells (Auto) Urine Bacteria (Auto) Urine Opiates Screen NONE DETECTED Ur Oxycodone Screen NONE DETECTED Ur Methadone, Qual NONE DETECTED Ur Barbiturates Screen NONE DETECTED Ur Phencyclidine Scrn NONE DETECTED Ur Amphetamines Screen NONE DETECTED U Benzodiazepines Scrn NONE DETECTED Urine Cocaine Screen NONE DETECTED U Cannabinoids Screen NONE DETECTED Orders Category Date Time Status Admit - [facility] Routine AdmDCTranf 10/04/18 21:54 Active Activity - Up with Assistance ORDERED Care 10/04/18 21:54 Active Intake and Output-Strict ORDERED Care 10/04/18 21:54 Active Saline Loc NOW Care 10/04/18 18:17 Completed Vital Signs Order Q 8-HR ASSESS Care 10/04/18 21:54 Active Z-Document. for Tele Applied ORDERED Care 10/04/18 21:54 Active Heart Healthy Diet Diet 10/04/18 21:54 Active CHEST-2 VIEWS [RAD] Stat Exams 10/04/18 18:[address] HEAD W/O CONTRAST [CT] Stat Exams 10/04/18 18:05 Completed BASIC METABOLIC PANEL [CHEM] Routine Lab 10/05/18 06:00 Uncollected CBC WITH DIFF [HEME] Routine Lab 10/05/18 06:00 Uncollected CBC WITH ELECTRONIC DIFF [HEME] Stat Lab 10/04/18 18:10 Completed COMPREHENSIVE METABOLIC PANEL [CHEM] Stat Lab 10/04/18 18:10 Completed MAGNESIUM [CHEM] Routine Lab 10/05/18 06:00 Uncollected PRO B-NATRIURETIC PEPTIDE Stat Lab 10/04/18 18:10 Completed TROPONIN T Stat Lab 10/04/18 18:10 Completed TSH Routine Lab 10/05/18 06:00 Uncollected UA NIMS W/REFLEX CULT [URINALYSIS] Routine Lab 10/04/18 21:54 Ordered URINALYSIS W/POSS RFLX CULT [URINALYSIS] Stat Lab 10/04/18 20:14 Completed URINE DRUG SCREEN Stat Lab 10/04/18 20:14 Completed 0.9% Sodium Chloride Inj [Ns] 1,000 ml Med 10/04/18 21:54 Active IV 125 mls/hr Acetaminophen [Tylenol] Med 10/04/18 21:54 Active 650 mg PO Q6H PRN PRN Heparin Med 10/04/18 21:54 Active 5,000 unit SUBQ Q12H Ondansetron [Zofran] Med 10/04/18 21:54 Active 4 mg IV Q4H PRN PRN Telemetry [OM.EQ] Routine Oth 10/04/18 21:54 Active EKG [EKG] Stat Ther 10/04/18 18:17 Ordered Transfer/Admit Order [TRANSFER] Routine Transfer 10/04/18 20:21 Completed A/P: Admit for TINO. Dr calvo accepted pt. Result Diagrams: 10/04/18 18:10 10/04/18 18:10 - EKG 1 Time of EKG reading by physician:: 18:34 EKG Read and Signed by:: Ciro Foy EKG Interpretation (*Must complete 3 of following elements*): Abnormal Rate: 81 Rhythm: Wide QRS rhythm [place] Bottom: left QRS: LBB - XRAY 1 XRAY Study: Chest Impression: Normal (EXAM: CHEST-2 VIEWS 10/04/2018 HISTORY: ams TECHNIQUE: AP and lateral chest COMMENT: The appearance of the chest has not changed significantly since 09/27/2018. There are sternotomy wires. IMPRESSION: Stable chest. Electronically signed by Roshan Townsend 10/04/2018 6:31 PM) - CT/MRI 1 CT Study: Head Impression: Normal (EXAM: CT HEAD W/O CONTRAST 10/04/2018 HISTORY: stroke like symptoms TECHNIQUE: This exam was performed using automated exposure control, adjustment of mA or kV according to patient size, and/or use of iterative reconstruction technique. COMMENT: There is no evidence of mass effect, bleed, or abnormal extra-axial fluid collection. There is some patchy lucency in the subcortical white matter in the frontal lobes. Compared to 09/25/2018 there has been no significant change in the appearance the brain. The visualized paranasal sinuses are clear. The calvarium is intact. IMPRESSION: No evidence of acute disease. Electronically signed by Roshan Townsend 10/04/2018 6:26 PM) - CONSULTS/PCP/HOSPITALIST Notification #1 *Consult/PCP/Hospitalist*: akinsoto Time Discussed: 19:34 Consult Disposition: Admit Departure - Departure Date of Disposition Decision: 10/04/18 Time of Disposition Decision: 19:34 DIAGNOSIS: TINO (acute kidney injury) Disposition: ADMITTED INPATIENT 09 Certified Medical Emergency: Emergent Condition: Stable - Critical Care Note This patient required my direct & personal management of CC.: No Attestation - Physician/ DOMITILA Attestation Patient care was provided by Advanced Practice Provider:: No The physician spent face to face time with patient:: Yes Advanced Practice Provider documentation review:: Supervising physician onsite and consulted in the evaluation and care of this patient. The physician did have a face to face encounter with the patient. This chart was documented by the indicated scribe, (Royer Pierson Scribe) and accurately reflects the services I performed and decisions made by me, Ciro Foy MD, as attested by the provider's signature.
--- NOTE | 2018-10-05 03:45 | HISTORY AND PHYSICAL ---
PRIMARY CARE PHYSICIAN: Vladislav Corral MD REASON FOR ADMISSION: Acute confusion over the last 24 hours and generalized weakness with restlessness. HISTORY OF PRESENT ILLNESS: Mr. Hector Goldman is an 83-year-old man with past medical history of Parkinson's disease, hypertension, hyperlipidemia, and chronic idiopathic demyelinating polyneuritis for which he receives IVIG. He was [facility] on 09/29/2018 [facility] and his reports that he had been doing well, even up until yesterday. Earlier this morning the patient was very lethargic, confused, drowsy, and noticed to be drooling out of the right corner of his mouth. He was then brought in for further evaluation and she says that since he has been in the ER he has been a little alert without any major intervention. She reports that he was a little difficult to arouse and maintain alertness in the penitentiary. The patient is an extremely poor historian. His speech is very mumbled and his says this is his usual baseline. He has fluctuating moments of lucidity and confusion. He denies any acute pain at this time. He denies any cardiorespiratory complaints. He denies any new focal weakness. His resting tremor in his right hand, however, according to his , is less pronounced compared to normal. The patient denies any genitourinary complaints and says his urine flow is good and says it is better than since he left the last time; no hematuria. He also states that he has no fever or chills. REVIEW OF SYSTEMS: His states that over the last few days he has not been drinking enough fluid and his food has had to be chopped up into little bits and his liquids have had to have thickener in them because of the quality of his swallowing mechanism. Otherwise a limited 12- systems review. ALLERGIES: Penicillin. HOME MEDICATIONS: Yet to be reconciled, but his discharge medication list: He was discharged on Flomax, MiraLAX, prednisone 40 mg daily, Risperdal, Sinemet, pravastatin, Micardis, Azilect, potassium chloride, omeprazole, senna, gabapentin, Mirapex, Coreg, indapamide and aspirin. FAMILY HISTORY: Notable for heart disease in first-degree relatives, bladder cancer in one of his siblings, diabetes in first-degree relatives. SOCIAL HISTORY: Does not smoke, drink or use illicit drugs. Was living with prior to his admission to penitentiary. PAST SURGICAL HISTORY: He has had a prostatectomy, appendectomy and CABG. DATA: White count is 11,000, hemoglobin 13, hematocrit 39, platelets 322,000, 82% neutrophils. Sodium 135, BUN 4, creatinine 1.9, glucose 114. Troponin is negative. ProBNP 609. Head CT: No acute evidence of intracranial bleed. Chest film: No acute chest pathology noted. EKG is pending. Urinalysis is also pending. PHYSICAL EXAMINATION: VITAL SIGNS: Blood pressure 105/99, heart rate is 82, temperature 99.1, respirations 19, 97% on 2L. GENERAL: Elderly man who is alert and oriented to only person and place. He has a normal mood and somewhat flat affect. HEENT: Head is normocephalic, atraumatic. Eyes: PERRLA. EOMI. He is anicteric, not pale. ENT: He has mild xerostomia. Cranial nerves 2-12 are surprisingly intact, although his tongue is slightly deviated to the right. NECK: Supple. No JVD or carotid bruit. No thyromegaly. CHEST: Clear when auscultated, good entry in both lung leary. CARDIOVASCULAR: First and second heart sounds heard. No gallops, but there is a 2/6 ejection systolic murmur heard in the aortic area radiating to the neck. Rhythm is regular. ABDOMEN: Slightly protuberant and soft. No tenderness or organomegaly. Bowel sounds are normal. RECTAL EXAM: Deferred at this time. EXTREMITIES: The patient has good distal pulses in all his extremities. No edema, clubbing or peripheral cyanosis. NEUROLOGIC: Patient has 4/5 power in all extremities. No gross focal deficits appreciated. He has an intention tremor in his left upper extremity and a resting tremor in his right. SKIN: No gross breakdown lesion or erythema. He has decreased skin turgor. MUSCULOSKELETAL: The patient has increased hypertonicity of extremities with cogwheeling of his wrist. ASSESSMENT: 1. This patient has metabolic encephalopathy secondary to possible uremia from acute kidney injury. Cerebrovascular accident is possible, but unlikely. 2. Acute kidney injury secondary to poor oral intake, increased volume loss from diuretics and concomitant ARBs. 3. Hypertension. Currently normotensive. 4. Parkinson's disease, cannot rule out a Parkinson plus syndrome. 5. Hyperlipidemia. 6. Dehydration. 7. Urinary incontinence, cannot rule out underlying urinary tract infection. PLAN: With withhold any nephrotoxic medication including blood pressure medications. Even though his blood pressure medication is not known nephrotoxic, if the patient's systolic blood pressure is less than 140 will hold this as low blood pressures can worsen renal perfusion and thus acute kidney injury. I will avoid any neurotoxic medications in the interim until the patient's sensorium is back to baseline. Continue to initiate IV fluid resuscitation and reassess. Will order a straight catheterization to get urine for UA and possible culture. Patient has incontinence and it is very hard to get urine. If the patient has a high residual may need to entertain the possibility of using an indwelling catheter for a short term and bladder train. At this point in time I do not think it is necessary to get a renal ultrasound, as it appears that the obvious reason for his renal failure is a combination of medication, poor oral intake and low blood pressure. Will start the patient on DVT prophylaxis as he is pretty much bedbound per the family. Physical therapy will need to be considered, but I want to first talk to Dr. Corral. Will repeat BMP in the a.m. to document objective improvement of our therapy. The patient will be transferred back to Dr. Corral's service. If the patient does not improve in the next 16-24 hours, and the patient's renal function has improved significantly, consider a co-existing cerebrovascular pathology. cc: MD Vladislav Rowan MD
[2018-10-05 06:01] LABS: BASO# 0.03 X1000 (0.0-0.2); BASO% 0.3 % (0.0-0.8); EOS# 0.06 X1000 (0.0-0.7); EOS% 0.5 % (0.0-10.0); HEMOGLOBIN 12.6 g/dL (14.0-18.0); IMM GRAN# 0.08 X1000 (0.0-0.04); IMM GRAN% 0.7 % (0.0-0.5); LYMPH# 3.18 X1000 (1.2-3.4); LYMPH% 27.2 % (20.5-51.1); MCH 30.8 PG (27-31); MCHC 33.2 g/dL (33-37); MCV 92.9 FL (81-99); MONO% 8.5 % (1.7-9.3); MPV 9.8 FL (7.4-10.4); NEUT# 7.35 X1000 (1.4-6.5); NEUT% 62.8 % (42.2-75.2); PLT 284 X1000 (130-400); RBC 4.09 XMIL (4.7-6.1); RDW 13.9 % (11.5-14.5)
[2018-10-05 06:47] LABS: CALCIUM 8.5 mg/dL (8.8-10.2); CREATININE 1.2 mg/dL (0.7-1.2); MAGNESIUM 1.7 mg/dL (1.5-2.7); POTASSIUM 3.9 mmol/L (3.5-5.1)
--- NOTE | 2018-10-05 07:25 | EKG Report ---
Test Performed on : 10/04/2018 6:34:33 PM Test Reason : ams Blood Pressure : / mmHG Vent. Rate : 081 BPM Atrial Rate : 080 BPM P-R Int : 000 ms QRS Dur : 148 ms QT Int : 434 ms P-R-T Axes : 000 -43 156 degrees QTc Int : 504 ms Wide QRS rhythm. Left axis deviation Left bundle branch block Abnormal ECG When compared with ECG of 04-FEB-2018 00:46, No significant change was found Unconfirmed Result
--- NOTE | 2018-10-05 08:59 | PROGRESS NOTE ---
DATE: 10/05/2018 SUBJECTIVE: The patient is alert and lucid this morning. He was apparently readmitted overnight due to acute confusion. I do not have a list of medications that he was given at the rehab center. It should have been the ones that I discharged him there with. Unfortunately this does not always happen. The patient was having issues with confusion at the time of discharge, but had generally resolved. He actually looks better now than he did when he left the hospital last time. OBJECTIVE: Vital signs: 98.0, 82, 16, 147/78, 100% saturated on room air. PHYSICAL EXAMINATION: As stated earlier, the patient is alert, oriented, conversive and appropriate and is better than when he left the hospital last time. Lungs are clear to auscultation, cardiovascular is regular. The patient has a tremor in his right arm, which he seems to exaggerate. His speech is at baseline. LABORATORIES: Yesterday's laboratories were reviewed. ASSESSMENT AND PLAN: 1. The patient has acute confusion and delirium that he suffered from during last hospitalization. It has improved. Apparently, had some sort of relapse last night. Not knowing if any medications have been changed it is difficult to infrastructure administrator what the cause of this was. I plan to reinstitute the medications I had him on at discharge and monitor his progress. 2. I am going to consult Dr. Waleska Fraser for help in managing his Parkinson's disease. Although the patient does have a pill rolling tremor in the right arm, he also tends to flap his arm and hand around exaggerating that motion to a certain degree. He also states he has difficulty with ambulation because his legs lock up and then want to go faster than he wants to go. He definitely has some coordination difficulty with ambulation. 3. The patient's medications have not been reconciled from his last discharge. It makes it very difficult for me to enter this back and started back on the regimen that I had him on. Hopefully, this will be taken care of shortly. 4. There were no gross electrolyte abnormalities with the exception of a bump in his creatinine to 1.9, which has resolved on laboratories today. PLAN: To hold his indapamide, but keep his other medications intact. I am going to DC IV fluids. cc: Vladislav Corral MD
--- NOTE | 2018-10-05 12:38 | CONSULTATION ---
DATE OF CONSULTATION: 10/05/2018 HISTORY OF PRESENT ILLNESS: Mr. Goldman is 83 years old and he was admitted with increased confusion. History from his attentive at the bedside and from review of the available hospital record is that he 1st had forgetfulness a year or 2 ago, gradually more prominent, particularly prominent in the last few months. He had some agitated confusion during hospitalization last week. He was discharged to rehab and seemed lethargic and then more confused, brought back to the emergency room, evaluated and readmitted yesterday. reports 1st feature of Parkinson's disease was tremor in the right arm. He had unsteady gait. reports significant clinical improvement when he 1st started medicine for Parkinson's disease a few years ago. She reports these medicines seem to be much less effective in recent months. He has had some numbness in the feet. is not certain about duration of that complaint. He has not had diabetes mellitus diagnosed. describes typical apractic gait, gradually getting worse, and then 1 day a month or so ago, he seemed unable to stand. 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 He received a course of IVIG daily for 5 days about a month ago, according to . She thought he seemed improved after that. He had a 1 or 2 day course of IVIG in the hospital during admission here last week. reports no history of serious head injury, definite diagnosed clinical stroke, ethanol abuse, illicit drug use, other neurologic event. Workup here includes lab showing WBC 11,700, sodium 135, BUN 44 (the computer record shows baseline BUN in the teens a few years ago), Urine drug screen was negative this admission. Noncontrast CT of the head was unremarkable this admission, showing no change compared to scan done 09/25/2018. He has been afebrile. Systolic blood pressures have ranged 100s-160s. Computer record shows his home medicines listed as carbidopa/levodopa 25/100 t.i.d., rasagiline 1 mg daily, Risperdal 0.25 mg at bedtime. is not certain when rasagiline was added. She recalls Risperdal started about a year ago. Prednisone was added last week and the dose is listed 40 mg daily on admission this time. He had sedimentation rate 102 recorded on 09/28/2018. I do not see sedimentation rate this admission. NEUROLOGIC EXAMINATION: Mr. Goldman is supine, awake, alert, attentive. He made some jokes and reports that is his baseline personality. He was not able to answer questions regarding orientation. I did not test his cognitive function more thoroughly. He has some rigidity and tremulousness in the limbs and intermittent resting tremor in the right arm more than the left. There is cogwheeling bilaterally, also more prominent in the right arm. I did not test his gait. He did well on [id number] testing bilaterally. I believe he may have some left shoulder joint issues with mechanical limitation there, but no definite motor deficit. Plantar response is silent bilaterally. Reflexes are absent at the ankles. He reports good pinprick, light touch, and temperature appreciation over the feet. Proprioception is good at the great toe MTP joint bilaterally. He appears to have good motor power distally in the legs. IMPRESSION: 1. Parkinsonism consistent with idiopathic Parkinson's disease. Report that he had initial significant clinical improvement with addition of dopaminergic medicine is typical and is reassuring. I would continue current Sinemet 25/100 t.i.d. If he continues bed bound, dose might be reduced, but to give him the best chance possible to make some progress with rehab, I would continue current dose. If he becomes more parkinsonian, dose could be increased. I do not have any suggestion regarding rasagiline. 2. Progressive cognitive decline noted by in recent years, worse in recent months. This often accompanies Parkinson's disease. I would consider cholinesterase inhibitor trial, not urgent. I briefly discussed potential cholinergic GI side effects of cholinesterase medications with . 3. Recent increased confusion with agitation while hospitalized. We discussed this as a typical phenomenon. If Risperdal has provided benefit, that could be continued and dose could be increased. I discussed with possibility that this could aggravate parkinsonism and that dopaminergic medicines to help Parkinson's disease would increase risk for psychosis. 4. gives clear description of apractic gait. This is often present with Parkinson's disease and also typically accompanies degenerative KETTLE OPERATOR HEAD problems associated with dementia. I encouraged him to be attentive and aggressive with his physical therapy. 5. On my exam, there is minimal clinical evidence of peripheral neuropathy, chiefly ankle areflexia. I do not have a copy of recent workup reports, which led to a neuromuscular diagnosis, so I do not have any comment regarding IV immunoglobulin management. Thanks for asking Neurology to see Mr. Goldman. I hope he will continue to improve mentally, be stable with Parkinson's and be ready for return to his rehab assignment soon. cc: MD Vladislav Thornton III, MD MTDD
[2018-10-06] MEDS ORDERED: CALMOSEPTINE OINTMENT TOP PRN (02:59)
[2018-10-06] MEDS ORDERED: SOLU-MEDROL IV ONE (08:29)
[2018-10-06] MEDS ORDERED: PREDNISONE PO SCH (09:00)
--- NOTE | 2018-10-06 09:01 | PROGRESS NOTE ---
DATE: 10/06/2018 SUBJECTIVE: The patient apparently had a rough night. His states that his legs hurt all night such that he could hardly move them. He did not sleep well. Prior to his discharge, we had to eliminate this pain. It was thought that he had PMR and had responded to steroids. Yesterday, due to difficulty reconciling the medications list, he did not receive any steroids. OBJECTIVE: Vital Signs: 97.9, 79, 24, 124/76, 97% saturated on room air. General: The patient is lying in bed with his eyes closed. Eyes: Closed. He has a tremor in his right hand. Lungs: Clear. Cardiovascular: Regular. Extremities: I do not feel any heat in his joints. He does not respond to palpation as if in pain. He has no peripheral edema. LABORATORY DATA: Still pending. ASSESSMENT AND PLAN: 1. The patient's acute confusion has resolved itself. I am not sure what to owe this to or why he was necessarily sent back to the hospital because of that. We are reinstituting all of his home medications today. 2. Dr. Fraser's consultation has just popped up on my screen and I have not been able to peruse it yet. Needless to say, will follow any recommendations that he has in regard to Parkinson's management. 3. Medication reconciliation is finally taking place. 4. The patient's acute kidney injury seemed to resolve after IV fluids. We are going to recheck that today. 5. The patient's increased joint pain will be checked with a sedimentation rate, rheumatoid factor, and JASON as screening tools. I have given him a dose of Solu-Medrol and am starting back on low-dose prednisone. 6. Holding the patient's indapamide. 7. In speaking with the patient's , she has finally agreed that because he is not ambulatory at the present time, she could not handle him at home and he will need to go back to [facility] to complete his rehab before going home. cc: Vladislav Corral MD
[2018-10-06 09:34] LABS: BASO# 0.04 X1000 (0.0-0.2); BASO% 0.4 % (0.0-0.8); EOS# 0.13 X1000 (0.0-0.7); EOS% 1.4 % (0.0-10.0); HEMATOCRIT 38.8 % (42.0-52.0); HEMOGLOBIN 13.3 g/dL (14.0-18.0); IMM GRAN# 0.06 X1000 (0.0-0.04); IMM GRAN% 0.6 % (0.0-0.5); LYMPH# 2.37 X1000 (1.2-3.4); LYMPH% 25.3 % (20.5-51.1); MCH 31.2 PG (27-31); MCHC 34.3 g/dL (33-37); MCV 91.1 FL (81-99); MONO% 10.7 % (1.7-9.3); NEUT# 5.78 X1000 (1.4-6.5); NEUT% 61.6 % (42.2-75.2); PLT 303 X1000 (130-400); RBC 4.26 XMIL (4.7-6.1); RDW 13.6 % (11.5-14.5); WBC 9.38 X1000 (4.8-10.8)
[2018-10-06] MEDS: SINEMET 25/100 PO SCH ×3 (10:07→20:22)
[2018-10-06] MEDS: HEPARIN SUBQ SCH ×2 (10:08→20:23)
[2018-10-06] MEDS: MIRALAX PO SCH (10:09)
[2018-10-06] MEDS: PATIENT'S OWN MED PO SCH (10:10)
[2018-10-06] MEDS: TYLENOL PO PRN (10:19)
[2018-10-06 10:56] LABS: AGAP 13; BUN 39 mg/dL (8-22); CHLORIDE 100 mmol/L (98-107); COSMO 281; CREATININE 1.1 mg/dL (0.7-1.2); ESTIMATED GFR > 60; GLUCOSE 99 mg/dL (70-104); POTASSIUM 4.2 mmol/L (3.5-5.1); SODIUM 136 mmol/L (136-145); TCO2 23 mmol/L (25-35)
--- NOTE | 2018-10-06 12:20 | PROGRESS NOTE ---
DATE: 10/06/2018 Mr. Goldman is a little bit parkinsonian right now. He was initially asleep and on waking, there was resting tremor in the arms, a little bit more prominent than what I saw yesterday. My time at the bedside today is about 3 hours after morning Sinemet dose. and [id number] at the bedside had a few questions and I tried to answer those. I do not have any new thoughts or new suggestions. I would continue current Sinemet dose schedule and hope he continues stable mentally long enough to get to rehab. Thanks for asking neurology to see Mr. Goldman. cc: MD Vladislav Thornton III, MD MTDD
[2018-10-06] MEDS ORDERED: METHOTREXATE PO ONE (13:09)
[2018-10-06] MEDS: FLOMAX PO SCH (20:22)
[2018-10-06] MEDS: PRAVACHOL PO SCH (20:22)
[2018-10-06] MEDS ORDERED: MICARDIS PO SCH (21:00)
[2018-10-06] MEDS ORDERED: RISPERDAL PO SCH (21:00)
[2018-10-07] MEDS: HEPARIN SUBQ SCH ×3 (02:08→20:50)
[2018-10-07] MEDS: TYLENOL PO PRN (05:02)
[2018-10-07] MEDS: MIRALAX PO SCH (09:06)
[2018-10-07] MEDS: SINEMET 25/100 PO SCH ×3 (09:06→20:50)
[2018-10-07] MEDS: PREDNISONE PO SCH (09:10)
[2018-10-07] MEDS ORDERED: MICARDIS PO SCH ×2 (09:15→21:00)
[2018-10-07] MEDS: PATIENT'S OWN MED PO SCH (09:20)
--- NOTE | 2018-10-07 09:42 | PROGRESS NOTE ---
DATE: 10/07/2018 SUBJECTIVE: The patient rested better last night, had less complaint of joint pain. They did try and get him over to physical therapy yesterday, but his legs were weak and he felt like his knees were going to buckle. He did not perform all that well. It was an improvement from the previous day. OBJECTIVE: Vital Signs: 98.2, 82, 20, 101/60, and 94% saturated on room air. General: The patient is lying in bed with his eyes closed. He awakens them and sometimes has a startle response, but seems to interact relatively normally during those time frames when he is paying attention and with us. He does have some jerking in his legs as he sleeps. Lungs: Clear. Cardiovascular: Regular. There is no murmur present. LABORATORY: As stated in other notes, the patient's sedimentation rate was 77. Rheumatoid factor was off the scale greater than 650. ASSESSMENT AND PLAN: 1. I am going to continue treatment with methotrexate and steroids. I am not sure whether the patient has rheumatoid arthritis. His related that when he was a senior in high school he was diagnosed with rheumatoid arthritis, but it went into remission for decades, and he has not really had any problem with that since he was a senior in high school. 2. We will continue present Parkinson's treatment and work with Physical Therapy. 3. Hopefully with the addition of steroids and methotrexate, the patient's joint pain will improve and he will be all to function better during physical therapy. 4. Acute kidney injury has resolved. 5. I have ordered a CCCP, which is more specific for rheumatoid arthritis. JASON is still pending. I have increased his steroid dose. 6. The patient's blood pressure is rather low today. I think I am going to hold his blood pressure medicine for the day, and monitor levels. I would rather him run a little bit high than to run as low as he is this morning. 7. I have discontinued the patient's risperidone. I do not think he is waking up well in the morning, and it could be exacerbating some of his parkinsonian symptoms so in light of the fact that there is very little benefit I am going to discontinue that. 8. If the patient is doing reasonably well tomorrow, I plan to transfer to [facility] for continuation of his rehab. At the completion of that time frame, if he is doing reasonably well, he will need some type of follow up with a regional manager which we can arrange on outpatient basis. cc: Vladislav Corral MD
--- NOTE | 2018-10-07 11:16 | PROGRESS NOTE ---
DATE: 10/07/2018 Mr. Goldman had a good night. He was less restless and agitated. He has made some progress with physical therapy. This morning, he is awake when stimulated and sleeping otherwise. He is not markedly parkinsonian on inspection. I do not have any new suggestion from a neurologic standpoint. Discussed with at bedside. I will be glad to see him again if things change, either with more prominent parkinsonian features, dementia, or new neurologic problem. Thanks for asking neurology to see Mr. Goldman. cc: MD Vladislav Thornton III, MD MTDD
[2018-10-07] MEDS: PRAVACHOL PO SCH (20:50)
[2018-10-07] MEDS: FLOMAX PO SCH (20:50)
[2018-10-08] MEDS: HEPARIN SUBQ SCH ×2 (00:02→09:07)
[2018-10-08] MEDS: SINEMET 25/100 PO SCH ×2 (09:07→15:06)
[2018-10-08] MEDS: MIRALAX PO SCH (09:07)
[2018-10-08] MEDS: PREDNISONE PO SCH (09:07)
[2018-10-08] MEDS: PATIENT'S OWN MED PO SCH (09:08)
--- NOTE | 2018-10-08 10:29 | PROGRESS NOTE ---
DATE: 10/08/2018 Mr. Goldman is very much awake and alert right now. There is some resting tremor in the arms, a little bit more prominent on the right. Rigidity is not prominent now. Voice is strong. Reviewed earlier discussions briefly with Mrs. Goldman. No new suggestions. Thanks for asking Neurology to see Mr. Goldman. cc: MD Vladislav Thornton III, MD
[2018-10-08 11:57] VITALS: BP 117/66
--- NOTE | 2018-10-08 12:50 | DISCHARGE SUMMARY ---
ADMISSION DATE: 10/04/2018 DISCHARGE DATE: 10/08/2018 DISCHARGE DIAGNOSES: 1. Acute mental status change. 2. Parkinson's disease. 3. Rheumatoid arthritis. 4. Hypertension. 5. BPH. CONSULTATIONS: Cassius Fraser III, MD. OPERATIVE PROCEDURES: None. HOSPITAL COURSE: An 83-year-old white male who was readmitted from [facility] after being sent there the previous week. He had become increasingly confused, and was sent back here to rule out stroke. He had a negative CT scan of the head. Laboratory showed a mild acute kidney injury from dehydration and elevated sedimentation rate. We had noted the patient's elevated sedimentation rate on the previous admission and thought that he had had PMR. Further testing during this hospitalization revealed very high levels of rheumatoid factor and a sedimentation rate of 77. He was started on prednisone and methotrexate and seemed to tolerate this well. This alleviated the pain in his legs and knees almost immediately. The patient's medication regimen was simplified. He was taken off diuretics and other sedative medications. On the day of discharge, the patient was as lucid as he had been and seemed very much like his old self. He was not having pain in his knees or legs, and seemed oriented and ready to go. The patient is discharged to [facility]. At the conclusion of his rehabilitation stay, hopefully, he will be able to regain his feet with minimal assistance. He will follow up with me, and we will set up other home health and/or rehab situations. Also, after discharge from rehab I would like for him to go to see for evaluation of the abnormal rheumatologic testing. 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 He was given IVIG x2 doses, and that should suffice for the time being until he can follow up with his other neurologist. cc: Vladislav Corral MD MTDMacrina
== END 2018-10-08 19:54 | DRG 682 ==
LOC: SUPCPDRO → ED 17:56 → SUATTDRO 22:04 → EDIPHOLD 22:04 → 4N 10-05 03:12
PROVIDERS: ADMIT Internal Medicine; ATTEND Internal Medicine
CPT/HCPCS: 70450; 71020; 71046; 80048; 80053; 80101; 80301; 80307; 80324; 80345; 80346; 80353; 80358; 80361; 80365; 81001; 82948; 83516; 83735; 83880; 83992; 84134; 84443; 84484; 85025; 85651; 86038; 86039; 86200; 86235; 86431; 93005; 96360; 96361; 97162; 97530; 99285; A9270; G0431; G0434; G0479; G0480; J1644; J2405; J2930; J7030; J7506; J7512; J8610; XXXXX

== ENCOUNTER 2018-12-19 12:38 | Inpatient (IN) ==
[2018-12-19] MEDS ORDERED: NS 1,000 ML IV ONE ×2 (12:52→16:48)
--- NOTE | 2018-12-19 13:48 | Diag Imaging Result Doc PS360 ---
EXAM: CT HEAD W/O CONTRAST HISTORY: fall TECHNIQUE: Emergency CT head without contrast COMPARISON: 10/04/2018 FINDINGS: No parenchymal hemorrhage. No epidural or subdural hematoma. No subarachnoid hemorrhage. Atrophy with chronic microvascular ischemic changes. No mass identified on this noncontrasted exam. No hydrocephalus. No skull fracture. IMPRESSION: No hemorrhage. No injury. This exam was performed using automated exposure control, adjustment of mA or kV according to patient size, and/or use of iterative reconstruction technique. Electronically signed by Xavier Morrell 12/19/2018 1:46 PM
--- NOTE | 2018-12-19 13:52 | Diag Imaging Result Doc PS360 ---
EXAM: CHEST-2 VIEWS HISTORY: ams TECHNIQUE: Chest two views COMPARISON: 10/04/2018 FINDINGS: The lungs are well expanded. The heart is not enlarged. There are sternal wires and surgical clips. The vessels are not distended. There are no infiltrates. Tiny pleural effusions. IMPRESSION: Tiny pleural effusions, otherwise negative exam. Electronically signed by Xavier Morrell 12/19/2018 1:50 PM
[2018-12-19 13:53] LABS: BASO# 0.04 X1000 (0.0-0.2); BASO% 0.8 % (0.0-0.8); EOS# 0.07 X1000 (0.0-0.7); EOS% 1.3 % (0.0-10.0); HEMATOCRIT 46.7 % (42.0-52.0); HEMOGLOBIN 15.8 g/dL (14.0-18.0); IMM GRAN# 0.06 X1000 (0.0-0.04); IMM GRAN% 1.1 % (0.0-0.5); LYMPH# 1.64 X1000 (1.2-3.4); LYMPH% 31.1 % (20.5-51.1); MCH 31.9 PG (27-31); MCHC 33.8 g/dL (33-37); MCV 94.2 FL (81-99); MONO# 0.45 X1000 (0.11-0.59); MONO% 8.5 % (1.7-9.3); MPV 9.6 FL (7.4-10.4); NEUT# 3.02 X1000 (1.4-6.5); NEUT% 57.2 % (42.2-75.2); PLT 161 X1000 (130-400); RBC 4.96 XMIL (4.7-6.1); RDW 16.1 % (11.5-14.5); WBC 5.28 X1000 (4.8-10.8)
[2018-12-19 14:26] LABS: ALB/GLOB RATIO 0.9; ALBUMIN 2.7 g/dL (3.5-5.0); CALCIUM 7.9 mg/dL (8.8-10.2); CREATININE 1.2 mg/dL (0.7-1.2); POTASSIUM 4.2 mmol/L (3.5-5.1); TOTAL BILIRUBIN 0.5 mg/dL (0.20-1.00); TOTAL PROTEIN 5.7 g/dL (6.3-8.3)
[2018-12-19 14:55] LABS: CK INDEX 0.7 (0.0-2.5); CK-MB 2.31 ng/mL (0.0-5.0)
[2018-12-19 15:15] LABS: URINE SOURCE CLEAN CATCH
[2018-12-19 15:19] LABS: BILIRUBIN URINE NEGATIVE (NEGATIVE); BLOOD URINE MODERATE (NEGATIVE); COLOR YELLOW; GLUCOSE URINE NEGATIVE (NEGATIVE); KETONE URINE TRACE mg/dL (NEGATIVE); LEUKOCYTES URINE SMALL (NEGATIVE); NITRITE URINE NEGATIVE (NEGATIVE); PH URINE 5.5; PROTEIN URINE 30 mg/dL (NEGATIVE); SP GRAVITY URINE 1.015; TURBIDITY URINE CLEAR (CLEAR); UROBILINOGEN URINE NORMAL (NORMAL)
[2018-12-19 15:20] LABS: UR EPITHELIAL CELLS <10 /HPF (<10); URINE BACTERIA NEGATIVE /HPF; URINE RBC <10 /HPF (<10); URINE WBC 20-40 /HPF (<10)
[2018-12-19] MEDS ORDERED: SEPTRA IV SCH (15:45)
[2018-12-19] MEDS ORDERED: D5W IV SCH (15:45)
--- NOTE | 2018-12-19 16:00 | PROVIDER DOCUMENTATION ---
This chart was entered by Abril Baez Scribe, acting as scribe for Ciro Foy MD. HPI-General Adult - General Chief Complaint: Altered Mental Status Stated Complaint: AMS Time Seen by Provider: 12/19/18 12:51 Source: patient, family, EMS Allergies/Adverse Reactions: Patient Allergies Allergy/AdvReac Type Severity Reaction Status Date / Time Penicillins Allergy HIVES Verified 10/04/18 18:14 Home Medications: Home Medication List Medication Instructions Recorded Confirmed Last Taken Type Pravastatin Sodium 20 mg PO HS 05/04/16 10/05/18 05/03/16 History Rasagiline Mesylate [Azilect] 1 mg PO DAILY 05/04/16 10/05/18 05/04/16 History Carbidopa/Levodopa [Sinemet 25/100] 1 each PO TID tablet 09/29/18 10/05/18 Unknown Rx Polyethylene Glycol 3350 [Miralax] 17 gm PO DAILY powder, packet 09/29/18 10/05/18 Unknown Rx Tamsulosin [Flomax] 0.4 mg PO QHS capsule 09/29/18 10/05/18 Unknown Rx Acetaminophen [Tylenol] 650 mg PO Q6H PRN PRN tab 10/08/18 Unknown Rx Methotrexate Sodium [Methotrexate] 2.5 mg PO DIRECTED #5 tab.ds.pk 10/08/18 Unknown Rx Prednisone 40 mg PO DAILY tab 10/08/18 Unknown Rx Telmisartan [Micardis] 40 mg PO HS tab 10/08/18 Unknown Rx - History of Present Illness -Gen Adult Nature of Presenting Problems: 83 y/o male presents to ED with AMS onset this morning. EMS reports he only responded to painful stimuli upon their arrival on the scene. EMS states he was tachycardic with blood pressure 70s/50s en route to ED. EMS reports his only gives him his medications when she feels like he needs them. Pt is currently on levaquin. Pt complains of back and bilateral knee pain. Pt is alert and oriented x 2. He has been recently started on 100 mg serolquel, symtoms started soon after medication change. Pt family unclear fro how long pt has been receiving his mipraex for parkinsons disease. Location of Pain/Injury: reports: back, lower extremity Pain Radiation: reports: no radiation Quality of Pain: reports: aching Severity: reports: mild Onset/Duration: reports: just prior to arrival Timing: reports: still present Context/Activities at Onset: reports: none Modifying Factors: improves with: nothing Associated Symptoms: reports: back/neck pain, joint pain (bilateral knees), other (AMS) Similar Symptoms Previously?: No Recently seen or treated by another doctor?: No Review of Systems - Adult - REVIEW OF SYSTEMS - ADULT Constitutional: reports: other (AMS). denies: chills, fever Eyes: reports: no symptoms reported Ears, Nose, Mouth & Throat: reports: no symptoms reported Cardiovascular: denies: chest pain, palpitations Respiratory: denies: cough, shortness of breath Gastrointestinal: denies: abdominal pain, diarrhea, nausea, vomiting Genitourinary: reports: no symptoms reported Musculoskeletal: reports: back pain, joint pain (bilateral knees) Integumentary: reports: no symptoms reported Neurological: reports: other (AMS). denies: dizziness/vertigo, seizure Psychiatric: reports: no symptoms reported Endocrine: reports: no symptoms reported Hematologic/Lymphatic: reports: no symptoms reported Allergic/Immunologic: reports: no symptoms reported All Other Systems: Reviewed and Negative Past History - Adult - PAST MEDICAL HISTORY-ADULT Review of Records: reports: Old Records Reviewed, Nursing Assessment Review, Medications Reviewed Major Childhood Illnesses: reports: denies history Cardiovascular: reports: cardiac disease, HTN, hyperlipidemia Gastrointestinal: reports: GERD Genitourinary: reports: kidney disease, kidney stones, prostate cancer Neurological: reports: dementia, Parkinson's Other Conditions: reports: cataract/glaucoma - PRIOR SURGERIES/PROCEDURES Surgical/Procedure History: reports: CABG, other (cataract removal/cystoscopy) - IMMUNIZATION STATUS Childhood Immunizations: See Nurse Assessment Flu Vaccine: See Nurse Assessment - FAMILY HISTORY Family History: reviewed, not pertinent - SOCIAL HISTORY Smoking: non-smoker Substance Use: none/never Alcohol Use Frequency: never Living Situation: family Physical Exam-General - PHYSICAL EXAM-ADULT Initial Vital Signs Reviewed: Yes - CONSTITUTIONAL General Appearance: appears well, alert, no apparent distress, lethargic, slow to respond, other (oriented x 2) - EYES Eyes: PERRL/EOMI, pink conjunctivae - HEAD, EARS, NOSE, MOUTH & THROAT HENMT: normocephalic/atraumatic, moist mucous membranes, normal ENT inspection - NECK Neck: non-tender, full range of motion - RESPIRATORY Respiratory: chest non-tender, lungs clear, normal breath sounds - CARDIOVASCULAR Cardiovascular: normal peripheral pulses, regular rate, rhythm - GASTROINTESTINAL (ABDOMEN) Abdominal Exam: normal bowel sounds, non tender, soft - MUSCULOSKELETAL Back Exam: normal inspection, no CVA tenderness Extremity: normal range of motion, non-tender - SKIN Integumentary: normal color, warm/dry - NEUROLOGIC Neurologic: grossly normal - PSYCHIATRIC Psych/Mental Status: normal mood/affect, other (oriented x 2; alert; slow to respond; lethargic) Progress - PLAN OF CARE/RESULTS Progress/Plan/Lab Results: Vital Signs - 24 hr 12/19/18 12:50 12/19/18 13:03 12/19/18 14:02 Pulse Rate 83 83 83 Respiratory Rate 14 18 18 Blood Pressure 97/65 94/59 81/50 O2 Sat by Pulse Oximetry 96 98 96 12/19/18 15:03 Pulse Rate 76 Respiratory Rate 20 Blood Pressure 131/65 O2 Sat by Pulse Oximetry 99 Orders Category Date Time Status Saline Loc NOW Care 12/19/18 12:52 Active CHEST-2 VIEWS [RAD] Stat Exams 12/19/18 12:[address] HEAD W/O CONTRAST [CT] Stat Exams 12/19/18 12:49 Completed CBC WITH ELECTRONIC DIFF [HEME] Stat Lab 12/19/18 13:26 Completed CK PROFILE [SP CHEM] Stat Lab 12/19/18 13:26 Completed CK TOTAL [CHEM] Stat Lab 12/19/18 13:26 Completed COMPREHENSIVE METABOLIC PANEL [CHEM] Stat Lab 12/19/18 13:26 Completed TROPONIN T Stat Lab 12/19/18 13:26 Completed URINALYSIS W/POSS RFLX CULT [URINALYSIS] Stat Lab 12/19/18 15:05 Completed 0.9% Sodium Chloride Inj [Ns] 1,000 ml Med 12/19/18 12:52 Discontinued IV 999 mls/hr EKG [EKG] Stat Ther 12/19/18 12:49 Ordered Laboratory Tests 12/19/18 12/19/18 12/19/18 13:26 13:26 13:26 WBC 5.28 RBC 4.96 Hgb 15.8 Hct 46.7 MCV 94.2 MCH 31.9 H MCHC 33.8 RDW Std Deviation 16.1 H Plt Count 161 MPV 9.6 Immature Gran % (Auto) 1.1 H Neut % (Auto) 57.2 Lymph % (Auto) 31.1 [place] % (Auto) 8.5 Eos % (Auto) 1.3 Baso % (Auto) 0.8 Immature Gran # (Auto) 0.06 H Neut # (Auto) 3.02 Lymph # (Auto) 1.64 [place] # (Auto) 0.45 Eos # (Auto) 0.07 Baso # (Auto) 0.04 Sodium 139 Potassium 4.2 Chloride 104 Carbon Dioxide 24 L Anion Gap 11 BUN 25 H Creatinine 1.2 Estimated GFR/1.73 m2 58 BUN/Creatinine Ratio 21 Glucose 118 H POC Glucose Calculated Osmolality 283 Calcium 7.9 L Total Bilirubin 0.50 AST 17 ALT 10 Alkaline Phosphatase 87 Creatine Kinase 346 H 342 H Creatine Kinase Index 0.7 CK-MB (CK-2) 2.31 Troponin T Total Protein 5.7 L Albumin 2.7 L Globulin 3.0 Albumin/Globulin Ratio 0.9 Urine Source Urine Color Urine Turbidity Urine pH Ur Specific [place] Urine Protein Ur Glucose (Stick) Ur Ketones (Stick) Urine Blood Urine Nitrite Urine Bilirubin Urobilinogen Dipstick Urine Leukocytes Urine WBC (Auto) Urine RBC (Auto) U Epithel Cells (Auto) Urine Bacteria (Auto) 12/19/18 12/19/18 12/19/18 13:26 14:10 15:05 WBC RBC Hgb Hct MCV MCH MCHC RDW Std Deviation Plt Count MPV Immature Gran % (Auto) Neut % (Auto) Lymph % (Auto) [place] % (Auto) Eos % (Auto) Baso % (Auto) Immature Gran # (Auto) Neut # (Auto) Lymph # (Auto) [place] # (Auto) Eos # (Auto) Baso # (Auto) Sodium Potassium Chloride Carbon Dioxide Anion Gap BUN Creatinine Estimated GFR/1.73 m2 BUN/Creatinine Ratio Glucose POC Glucose 117 H Calculated Osmolality Calcium Total Bilirubin AST ALT Alkaline Phosphatase Creatine Kinase Creatine Kinase Index CK-MB (CK-2) Troponin T 0.018 Total Protein Albumin Globulin Albumin/Globulin Ratio Urine Source CLEAN CATCH Urine Color YELLOW Urine Turbidity CLEAR Urine pH 5.5 Ur Specific Palmer 1.015 Urine Protein 30 A Ur Glucose (Stick) NEGATIVE Ur Ketones (Stick) TRACE A Urine Blood MODERATE A Urine Nitrite NEGATIVE Urine Bilirubin NEGATIVE Urobilinogen Dipstick NORMAL Urine Leukocytes SMALL A Urine WBC (Auto) 20-40 A Urine RBC (Auto) <10 U Epithel Cells (Auto) <10 Urine Bacteria (Auto) NEGATIVE Result Diagrams: 12/19/18 13:26 12/19/18 13:26 - EKG 1 Time of EKG reading by physician:: 12:41 EKG Read and Signed by:: Ciro Foy EKG Interpretation (*Must complete 3 of following elements*): Abnormal Rate: 86 Rhythm: NSR [place]: left QRS: LBB MD Interval: normal ST Wave: normal - XRAY 1 XRAY Study: Chest Impression: Abnormal (FINDINGS: The lungs are well expanded. The heart is not enlarged. There are sternal wires and surgical clips. The vessels are not distended. There are no infiltrates. Tiny pleural effusions. IMPRESSION: Tiny pleural effusions, otherwise negative exam. Electronically signed by Xavier Morrell 12/19/2018 1:50 PM) - CT/MRI 1 CT Study: Head Impression: Normal ( FINDINGS: No parenchymal hemorrhage. No epidural or subdural hematoma. No subarachnoid hemorrhage. Atrophy with chronic microva scular ischemic changes. No mass identified on this noncontrasted exam. No hydrocephalus. No skull fracture. IMPRESSION: No hemorrhage. No injury. This exam was performed using automated exposure control, adjustment of mA or kV according to patient size, and/or use of iterative reconstruction technique. Electronically signed by Xavier Morrell 12/19/2018 1:46 PM) - CONSULTS/PCP/HOSPITALIST Notification #1 *Consult/PCP/Hospitalist*: Dr Slaughter Time Discussed: 15:59 Consult Disposition: Admit Departure - Departure Date of Disposition Decision: 12/19/18 Time of Disposition Decision: 16:00 DIAGNOSIS: Altered mental status, UTI (urinary tract infection) Disposition: ADMITTED INPATIENT 09 Certified Medical Emergency: Emergent Condition: Stable Additional Freetext Instructions: We have examined and treated you today on an emergency basis only. This was not a substitute for, or an effort to provide, complete medical care. In most cases, you must let your doctor check you again. Tell your doctor about any new or lasting problems. We cannot recognize and t reat all injuries or illnesses in one Emergency Department visit. If you had special tests, such as X-rays or CT scans, will be reviewed by radiologist and will call you if there are any new suggestions Follow up with primary care provider in 1 to 2 days if no improvement. If you do not have a primary care provider, you need to choose one as soon as possible. Take medicines as prescribed. Monitor for any side effects or adverse events from medications. If any side effect, adverse event or rash develops, or if you suspect any other adverse reaction to the medication, then discontinue the medi cation immediately and contact clinic /PCP or go to the nearest ER. Narcotic meds / sedative meds instruction - patent advised not to drive, operate any machinery or go into water after taking meds as it may impair mental ability to react to the situation in an appropriate manner. Continue other current medicines. Follow up with PCP within 24-48 hours, or sooner if symptoms worsen or fail to improve. Patient / guardian verbalizes understanding of treatment plan, medication, and side effects and agrees with treatment plan. Patient leaves ER in stable condition and ambulatory state. Return to ER as needed. Discharge instructions reviewed verbally and given to patient in written form. Follow up with primary care provider. Referrals and Follow-Ups: Vladislav Corral MD [Primary Care Provider] - - Critical Care Note This patient required my direct & personal management of CC.: No Attestation - Physician/ DOMITILA Attestation Patient care was provided by Advanced Practice Provider:: No The physician spent face to face time with patient:: Yes Advanced Practice Provider documentation review:: Supervising physician onsite and consulted in the evaluation and care of this patient. The physician did have a face to face encounter with the patient. This chart was documented by the indicated scribe, (Abril Baez Scribe) and accurately reflects the services I performed and decisions made by me, Ciro Foy MD, as attested by the provider's signature.
[2018-12-19] MEDS ORDERED: SODIUM CHLORIDE 0.9% INJ PRN (16:48)
[2018-12-19] MEDS ORDERED: TOBRAMYCIN 80 MG in NS 50 ML IV ONE (16:48)
[2018-12-19] MEDS ORDERED: PHENERGAN IV PRN (16:48)
[2018-12-19] MEDS ORDERED: SEPTRA IV ONE (17:00)
[2018-12-19] MEDS ORDERED: D5W IV ONE (17:00)
[2018-12-19] MEDS: LOVENOX SUBQ SCH (18:54)
[2018-12-19] MEDS ORDERED: NS 1,000 ML ONE (19:42)
[2018-12-19] MEDS: NS 1,000 ML IV SCH (22:24)
[2018-12-19] MEDS: TAZIDIME 1 GM in NS 50 ML IV SCH (22:24)
[2018-12-20] MEDS ORDERED: CALMOSEPTINE OINTMENT TOP PRN (02:59)
[2018-12-20] MEDS: TAZIDIME 1 GM in NS 50 ML IV SCH ×3 (03:31→21:38)
--- NOTE | 2018-12-20 07:24 | EKG Report ---
Test Performed on : 12/19/2018 12:41:47 PM Test Reason : AMS Blood Pressure : / mmHG Vent. Rate : 086 BPM Atrial Rate : 086 BPM P-R Int : 176 ms QRS Dur : 150 ms QT Int : 420 ms P-R-T Axes : 000 -51 130 degrees QTc Int : 502 ms Normal sinus rhythm. Left axis deviation Left bundle branch block Abnormal ECG When compared with ECG of 04-OCT-2018 18:34, Sinus rhythm. has replaced Wide QRS rhythm. Unconfirmed Result
--- NOTE | 2018-12-20 09:14 | PROGRESS NOTE ---
DATE: 12/20/2018 SUBJECTIVE: Mr. Goldman was admitted to [facility] with metabolic encephalopathies secondary to underlying urinary tract infection. He had an abnormal urinalysis as an outpatient on Thursday and had been taking oral Levaquin. This morning, he opens his eyes to verbal stimuli. He seems more alert and interactive. He can tell me his name. He knows that he is at [facility]. He reports that he did not have any hallucinations this morning. We had also held the Seroquel. He does have a history of hypertension. Systolic blood pressures range from 135 to 149 whereas his diastolic blood pressures range from 70 to 80. He denies any chest pain, palpitations, or anginal equivalents. OBJECTIVE: Vital Signs: Temperature 98.4 degrees, pulse 90, respirations 18, blood pressure 135/70. Cardiovascular: Regular rate and rhythm. Lungs: Clear. Abdomen: Soft, nontender, with active bowel sound. Neurologic: He opens his eyes to verbal stimuli. He has a significant resting tremor of the right upper extremity. He does have cogwheel rigidity. He answers questions appropriately. He is oriented to name and place. ASSESSMENT AND PLAN: 1. Metabolic encephalopathy. He does have underlying Alzheimer's dementia and has baseline confusion. I suspect that the etiology of the encephalopathy is multifactorial. He has a urinary tract infection. We will continue Fortaz and tobramycin pending urine and blood cultures. We will continue to hold the Seroquel. We will cautiously rehydrate him. 2. Hypertension. Blood pressure is trending upward. I will resume his Coreg. 3. Parkinson disease. He does have a significant resting tremor. I am going to resume his Sinemet but hold the Mirapex. Certainly high doses of dopaminergic agents can improve the physical functioning of the Parkinson's but worsen mental status. cc: Stephanie Slaughter MD
--- NOTE | 2018-12-20 10:23 | HISTORY AND PHYSICAL ---
HISTORY OF PRESENT ILLNESS: Mr. Goldman is an 83-year-old gentleman who is followed as an outpatient by Dr. Vladislav Corral. 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 He had recently been hospitalized at [facility] from 10/04/2014 to 10/08/2018 with encephalopathy and mental status changes. Last week, he had worsening mental status changes and they obtained a urinalysis which was grossly abnormal, and they placed him on oral Levaquin. He had also been taking Seroquel 100 mg at night because of visual and auditory hallucinations. The family reported that over the past several days, he had had progressive confusion, disorientation, lethargy and was difficult to arouse. His CT scan demonstrated chronic white matter changes. He was not arousable to verbal or painful stimuli. He also has a history of Parkinson's disease. He has a persistent tremor of the right upper extremity. The family did not remember if the dosage of Sinemet had recently been increased. Higher doses of Sinemet certainly can worsen confusion. He denied any fever, chills, nausea, or vomiting. He had no obvious seizure activity. Blood pressure was low. Systolic blood pressures were in the 90s and low 100s. PAST MEDICAL HISTORY: 1. Parkinson disease. 2. Alzheimer's dementia. 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 4. Ischemic heart disease. 5. Essential hypertension. 6. Rheumatoid arthritis. PAST SURGICAL HISTORY: 1. Appendectomy. 2. Inguinal hernia repair. 3. Coronary artery bypass graft surgery. 4. Radical prostatectomy. ALLERGIES: Penicillin. FAMILY HISTORY: Noncontributory. SOCIAL HISTORY: He does not smoke or consume alcoholic beverages. MEDICATIONS: 1. Aspirin 81 mg daily. 2. Sinemet 25/100, one p.o. t.i.d. 3. Coreg 3.125 mg b.i.d. 4. Mirapex 0.25 mg daily. 5. Pravastatin 20 mg at night. 6. Seroquel 100 mg at night. 7. Micardis 20 mg daily. REVIEW OF SYSTEMS: General: He denies any recent weight gain or weight loss. HEENT: No loss of visual or auditory acuity. Cardiovascular: No chest pain, palpitations, or anginal equivalents. Pulmonary: No shortness of breath, PND, orthopnea. GI: No reflux, dysphagia, melena, hematochezia, change in bowel habits, or rectal bleeding. Endocrine: No polyuria, no polydipsia. No cold or heat intolerance. Skin: No easy bruisability. : No leakage of urine with coughing or laughing. Neurologic: No migraines or seizures. PHYSICAL EXAMINATION: GENERAL: This is a chronically ill-appearing, 83-year-old gentleman who does not arouse to verbal stimuli. He arouses to painful stimuli. He is confused and disoriented. VITAL SIGNS: Afebrile, pulse 76, respirations 20, blood pressure 90/50. HEENT: Fundi with arteriolar wall thickening. Pupils equal, round, reactive to light. Extraocular eye movements intact. TMs without bullae. NECK: Supple. No masses, JVD or bruits. CARDIOVASCULAR: Regular rate and rhythm. LUNGS: Clear. ABDOMEN: Soft, nontender, with active bowel sounds. No hepatosplenomegaly. No abdominal bruits. EXTREMITIES: Without edema. SKIN: No palpable purpura. GENITOURINARY AND RECTAL: Deferred. NEUROLOGIC: He will open his eyes to verbal stimuli. He is nonverbal. He has a marked tremor of the right upper extremity. He moves all extremities grossly. ASSESSMENT AND PLAN: 1. Metabolic encephalopathy. I suspect that the etiology of the encephalopathy is multifactorial. He was started on Levaquin for urinary tract infection on Thursday. We will change his antibiotics to Fortaz and tobramycin pending urine and blood cultures. Certainly high dose dopamine drugs can increase confusion. Once he is back to his baseline, we made need to hold the Mirapex and just continue the Sinemet. Certainly there is some probable degree of sedation from medications. I will hold the Seroquel. Potentially, he would benefit from a much smaller dosage of Seroquel. 2. Hypertension. Blood pressure is low. I will cautiously give him fluids and hold both the Coreg and Micardis. 3. Parkinson disease. Until he is more awake, we will hold his Sinemet. 4. Ischemic heart disease. Aware. Given his clinical course and comorbid conditions, I believe that admission to the hospital is both reasonable and necessary. I anticipate that he will be in the hospital for at least 2 midnights and I will therefore place him in inpatient status. I will begin Lovenox as needed for DVT prophylaxis. cc: Stephanie Slaughter MD
[2018-12-20] MEDS: NS 1,000 ML IV SCH (10:29)
[2018-12-20] MEDS: SINEMET 25/100 PO SCH ×3 (11:44→18:43)
[2018-12-20] MEDS: MIRALAX PO SCH (12:00)
[2018-12-20] MEDS: COREG PO SCH ×2 (12:03→21:38)
[2018-12-20] MEDS: ASPIRIN EC PO SCH (12:04)
[2018-12-20] MEDS: LOVENOX SUBQ SCH (18:43)
[2018-12-21] MEDS: TAZIDIME 1 GM in NS 50 ML IV SCH ×3 (03:39→20:38)
[2018-12-21] MEDS: ASPIRIN EC PO SCH (08:53)
[2018-12-21] MEDS: NS 1,000 ML IV SCH ×2 (08:54→13:39)
[2018-12-21] MEDS: SINEMET 25/100 PO SCH ×3 (08:54→17:30)
[2018-12-21] MEDS: MIRALAX PO SCH (08:54)
[2018-12-21] MEDS: COREG PO SCH ×2 (08:54→20:38)
--- NOTE | 2018-12-21 16:53 | PROGRESS NOTE ---
DATE: 12/21/2018 SUBJECTIVE: The patient is sitting up in bed. He is alert, oriented, conversive and reasonably appropriate. His launched into an oratory describing how he has a family history of kidney cancer and she wants him checked out. Is noted the patient had a CT scan of the abdomen and pelvis which showed a large right renal cyst and he was at that time admitted for hematuria. Followup was arranged with Dr. Salazar on outpatient basis but the family never followed up on this. VITAL SIGNS: 97.6, 82, 24, 145/77. PHYSICAL EXAM: Lungs: Clear. Cardiovascular: Regular. The patient has resting tremor, more prominent in the right hand, although I am not convinced that this is entirely parkinsonian. Extremities: Show no peripheral edema. ASSESSMENT AND PLAN: 1. The patient's metabolic encephalopathy has resolved. He has underlying dementia and Parkinson disease. The patient is on strong antibiotics but is unlikely will grow anything from culture. He did have coag-negative staph in 1 of his blood cultures. We will wait for further readings before making the decision. He is off Seroquel. 2. The patient's hypertension is reasonably controlled. 3. Parkinson disease stable. cc: MD Stephanie Aranda MD
[2018-12-21] MEDS: LOVENOX SUBQ SCH (17:30)
[2018-12-22] MEDS: TAZIDIME 1 GM in NS 50 ML IV SCH ×2 (03:21→12:12)
[2018-12-22] MEDS: COREG PO SCH (09:55)
[2018-12-22] MEDS: ASPIRIN EC PO SCH (09:55)
[2018-12-22] MEDS: SINEMET 25/100 PO SCH ×2 (09:55→14:53)
[2018-12-22] MEDS: MIRALAX PO SCH (09:56)
[2018-12-22 12:26] VITALS: BP 111/67
--- NOTE | 2018-12-23 07:30 | DISCHARGE SUMMARY ---
ADMISSION DATE: 12/19/2018 DISCHARGE DATE: 12/22/2018 DISCHARGE DIAGNOSES: 1. Metabolic encephalopathy. 2. Likely adverse reaction to medications. 3. Chronic hematuria. 4. Parkinson's disease with dementia. HOSPITAL COURSE: This 82-year-old, white male had been struggling at home for some time. Multiple calls to the office on the previous week resulting several medication adjustments. We initially had been given information that the patient was not sleeping and was not oriented, etc. We called in medications to help settle him down but the family was sure that he had a urinary tract infection because he had hematuria. Home health collected a urine sample and the urinalysis showed hematuria but no obvious sign of infection. The family persisted on asking for antibiotics and I finally relented. The patient had been taking Seroquel and multiple other medications have been tried for nighttime sedation, none of which had the desired effect. Over the course of the , the patient was admitted when Dr. Slaughter was analysis consultant. Dr. Slaughter stopped all psychotropic and sedating medications and continued treatment for a urinary tract infection despite the fact that repeat urinalysis was only marginally indicative of a urinary tract infection. His urine cultures of course grew nothing. He did have one positive blood culture with coagulase-negative staphylococcus which seemed to be a contaminant. The final culture was not yet available at the time of discharge. The patient's sensorium cleared remarkably well. He was back to baseline in short order after removal of psychotropic medications. On multiple other occasions during hospitalizations and at home, we have tried various and sundry medications to help him sleep and to remain oriented, and all of these have backfired. I am going to be much more reticent to prescribe anything else that might affect his sensorium as he seems exceedingly sensitive to this. The patient's hematuria has been present since September. That was one of the original reasons he was admitted earlier in the year for the first time. He was seen by Dr. Salazar in the hospital and arrangements for followup were made but the family never took him back to see Dr. Salazar. The overall plan was for outpatient cystoscopy and further study as indicated. I strongly encouraged the family to get in contact with Dr. Salazar and make followup plans and try and arrange for outpatient cystoscopy to possibly delineate the reason for his persistent and/or recurrent hematuria. At the time of discharge, the patient had reached maximum hospital benefit and was discharged home. We went over his medications which have been greatly simplified of late with his and communicated to her through the office as to what medications were going to be used. We also strongly encouraged her to let home health help her set up pill boxes so that he receives the correct medications at the correct times. Followup will be within 2 to 3 weeks in my office. cc: MD Stephanie Aranda MD
== END 2018-12-22 15:32 | disposition home health service (06) | DRG 92 ==
LOC: SUPCPDRO → ED 12:38 → EDIPHOLD 18:43 → 4N 19:38
PROVIDERS: ADMIT Internal Medicine; ATTEND Internal Medicine
CPT/HCPCS: 70450; 71020; 71046; 80053; 81001; 82550; 82553; 82948; 84484; 85025; 87040; 87088; 93005; 96365; 96372; 99285; A9270; J0713; J1650; J3260; J7030; J7060; S0039; XXXXX